=== PATIENT | male | born 1975 | race Caucasian/White ===

== ENCOUNTER 2019-05-29 13:31 | Inpatient (IN) | payer OTHER ==
[~2019-05-29] VITALS: Ht 175.2 cm; Wt 135.0 kg
[2019-05-29] VITALS (12 sets, daily range): BP systolic 83–195; BP diastolic 42–117
--- NOTE | 2019-05-29 13:30 | NUR ---
A 43, admitted to , under the services of LINDA Black DO with a diagnosis of COVID 19. Chief complaint is SHORTNESS OF BREATH, COUGH AND CHEST TIGHTNESS. Patient arrived via stretcher from ER. Monitor applied. Initial assessment completed. Vital signs taken and recorded. LINDA BLACK DO notified of admission to the unit. Orders received. See assessment for past medical history, medications and allergies. Patient and/or family oriented to unit. [facility] policy reviewed. Clothing/patient valuable form completed. CARLIE GARCIA
--- NOTE | 2019-05-29 13:44 | NUR ---
RAPID COVID PERFORMED BY AT BEDSIDE WITH POSITIVE RESULT.
--- NOTE | 2019-05-29 13:45 | NUR ---
PATIENT INTUBATED #8ETT 23LIP. SEDATED WITH ETOMIDATE, SUCCS AND ROCC. AC 20 TV 500 PEEP 18 100% FIO2.
--- NOTE | 2019-05-29 14:00 | NUR ---
#16 SAINI INSERTED WITH 50CC CLEAR STRAW URINE OBTAINED. # 16 OGT INSERTED.
--- NOTE | 2019-05-29 14:30 | NUR ---
[employer] TEAM DIRECTOR MEDICATED PATIENT WITH 200 FENTANYL AND 50 ZEMURON TO SEDATE PATIENT.
[2019-05-29 14:54] LABS: ARTERIAL BLOOD GAS PH 7.23 (7.35-7.45)
[2019-05-29 14:55] LABS: ABG BASE EXCESS -6.3 mmol/L (-2.0-2.0)
[2019-05-29 15:24] LABS: HEMATOCRIT 51.3 % (42.0-52.0); MEAN CORPUSCULAR HGB 29.1 pg (27.0-31.0); MEAN PLATELET VOLUME 12.4 fl (9.6-12.3); PLATELET COUNT AUTOMATED 182 10*3/uL (130-400); RED BLOOD COUNT 5.64 10*6/uL (4.50-5.90); RED CELL DISTRI WIDTH 14.3 % (0-14.5); WHITE BLOOD COUNT 9.8 10*3/uL (4.8-10.8)
[2019-05-29 15:32] LABS: ALBUMIN 2.6 gm/dl (3.1-4.5); ALKALINE PHOSPHATASE 64 U/L (45-117); BUN 26 mg/dl (7-24); CHLORIDE 101 mmol/L (98-107); CREATININE 1.53 mg/dL (0.70-1.30); POTASSIUM 4.9 mmol/L (3.5-5.1); SGOT/AST 128 IU/L (3-35); SGPT/ALT 61 U/L (12-78); SODIUM 134 mmol/L (136-145); TOTAL PROTEIN 7.5 gm/dL (6.4-8.2)
[2019-05-29 16:01] LABS: TOTAL CELLS COUNTED 100 #CELLS
[2019-05-29 16:02] LABS: PLATELET SUFFICIENCY NORMAL (NORMAL); POLYCHROMASIA SLIGHT; ROULEAUX SLIGHT
--- NOTE | 2019-05-29 16:35 | NUR ---
PER DR SIMEON VT CHANGED TO 400, HR 108, SPO2 95%, VT 433, PIP 36, PLAT 40, I/E 1/2.5, VE 16.3,
--- NOTE | 2019-05-29 16:36 | NUR ---
PATIENT MEDICATED WITH VERSED PER PRN ORDER FOR AGITATION.
[2019-05-29 17:21] LABS: BILIRUBIN NEGATIVE (NEGATIVE); BLOOD 3+ (NEGATIVE); CLARITY SL CLOUDY (CLEAR); COLOR YELLOW (YELLOW); GLUCOSE NEGATIVE (NEGATIVE); KETONE 1+ (NEGATIVE); LEUKO ESTERASE NEGATIVE (NEGATIVE); NITRITE NEGATIVE (NEGATIVE); UROBILINOGEN 0.2 E.U./dl (0.2-1.0)
[2019-05-29 17:27] LABS: BACTERIA 2+; EPITHELIAL CELLS 0-2; FINE GRANULAR CAST 0-2; MUCOUS TRACE; WBC 0-2 wbc/hpf (0-5)
[2019-05-29 17:38] LABS: ARTERIAL BLOOD GAS PH 7.259 (7.35-7.45)
[2019-05-29 17:39] LABS: ABG BASE EXCESS -5.8 mmol/L (-2.0-2.0)
--- NOTE | 2019-05-29 17:48 | NUR ---
PATIENT AWAKE AND ANXIOUS. MEDICATED WITH VERSED PER PRN ORDER.
--- NOTE | 2019-05-29 18:30 | NUR ---
MEDICATED WITH ROCC PER ONE TIME ORDER FROM .
[2019-05-29] MEDS ORDERED: ASPIRIN81 M1 PO (19:36)
[2019-05-29] MEDS ORDERED: TYLENOL325 M1 PO (19:36)
[2019-05-29] MEDS ORDERED: TENORMIN50 MG PO (19:36)
[2019-05-29] MEDS ORDERED: LIPITOR10 MG PO (19:37)
[2019-05-29] MEDS ORDERED: LEVOFLOXACIN750 M2 PO (19:38)
[2019-05-29] MEDS ORDERED: OMEPRAZOLE20 M2 PO (19:39)
[2019-05-29] MEDS ORDERED: GLUCOPHAGE500 M1 PO (19:39)
[2019-05-29] MEDS ORDERED: ZESTRIL10 MG PO (19:41)
[2019-05-29 21:14] LABS: ABG BASE EXCESS -6.1 mmol/L (-2.0-2.0); ARTERIAL BLOOD GAS PH 7.254 (7.35-7.45)
--- NOTE | 2019-05-29 21:30 | NUR ---
Patient becomes somewhat agitated, pulling at restraints, resp up to 40. I enter room and told the patient to try to relax he was very sick, and he nodded his head. Candido and versed given. Effective almost immediately. Will monitor.
--- NOTE | 2019-05-29 22:15 | NUR ---
TYLENOL GIVEN FOR A TEMP OF 103.3
[2019-05-30] VITALS (96 sets, daily range): BP systolic 90–146; BP diastolic 50–80
[2019-05-30 06:48] LABS: ALBUMIN 2.2 gm/dl (3.1-4.5); CREATININE 1.77 mg/dL (0.70-1.30); PHOSPHOROUS 3.5 mg/dL (2.5-4.9); POTASSIUM 4.8 mmol/L (3.5-5.1)
[2019-05-30 06:52] LABS: BASO % 0.2 % (0.0-1.0); EOS % 0.2 % (1.0-4.0); HEMATOCRIT 46.7 % (42.0-52.0); LYMPH # 1.3 10*3/uL (1.3-4.4); LYMPH % 15.9 % (27.0-41.0); MEAN CORPUSCULAR HGB 29.7 pg (27.0-31.0); MEAN CORPUSCULAR HGB CONC 31.9 g/dl (33.0-37.0); MEAN PLATELET VOLUME 12.3 fl (9.6-12.3); MONO # 0.4 10*3/uL (0.1-1.0); MONO % 4.8 % (3.0-9.0); NEUT # 6.3 10*3/uL (2.3-7.9); NEUT % 77.7 % (47.0-73.0); PLATELET COUNT AUTOMATED 170 10*3/uL (130-400); RED BLOOD COUNT 5.02 10*6/uL (4.50-5.90); RED CELL DISTRI WIDTH 14.6 % (0-14.5); WHITE BLOOD COUNT 8.1 10*3/uL (4.8-10.8)
[2019-05-30 06:59] LABS: THYROID STIM HORMONE (HS) 0.217 uIU/ml (0.358-4.75); TOTAL PROTEIN 6.5 gm/dL (6.4-8.2)
--- NOTE | 2019-05-30 09:20 | NUR ---
PATIENT RR 38. MEDICATED WITH ROCURONIUM PER PRN ORDER TO PARALYZE AND IMMEDIATELY EFFECTIVE.
[2019-05-30 10:26] LABS: ARTERIAL BLOOD GAS PH 7.196 (7.35-7.45)
--- NOTE | 2019-05-30 10:30 | NUR ---
AT BEDSIDE. RR 38. MEDICATED WITH ROCURONIUM PER PRN ORDER.
--- NOTE | 2019-05-30 12:00 | NUR ---
TEMPERATURE 102 RECTALLY. MEDICATED WITH TYLENOL RECTAL SUPP PER PRN ORDER. WILL CONTINUE TO MONITOR.
[2019-05-30 12:14] LABS: ABG BASE EXCESS -5.3 mmol/L (-2.0-2.0); ARTERIAL BLOOD GAS PH 7.162 (7.35-7.45)
--- NOTE | 2019-05-30 13:00 | NUR ---
RR 40. MEDICATED WITH ROCURONIUM PER PRN ORDER. WILL CONTINUE TO MONITOR.
[2019-05-30 15:23] LABS: ABG BASE EXCESS -4.5 mmol/L (-2.0-2.0)
[2019-05-30 15:26] LABS: ARTERIAL BLOOD GAS PH 7.163 (7.35-7.45)
--- NOTE | 2019-05-30 16:35 | NUR ---
16:00 PT PLACED IN PROVNE POSITION WITH ASSISTANCE OF ANESTHESIA AND NURSING STAFF. PT MEDICATED. TOLERATING WELL. ETT SECURE WITH TAPE. BBSs EQUAL AND DIMINISHED.
--- NOTE | 2019-05-30 17:17 | NUR ---
MEDICATED WITH TYLENOL SUPP PER PRN ORDER FOR TEMPERATUR 103.6.
--- NOTE | 2019-05-30 18:30 | NUR ---
PATIENT RETURNED TO SUPINE POSITION.
--- NOTE | 2019-05-30 21:20 | NUR ---
RESP 44, TV UP TO 680. KARTHIKEYAN GIVEN. WILL MONITOR.
[2019-05-31] VITALS (93 sets, daily range): BP systolic 96–155; BP diastolic 53–85
--- NOTE | 2019-05-31 05:20 | NUR ---
RESP 44, TV 300-600, KARTHIKEYAN GIVE. EFFECTIVE IMMEDIATELY. MONITORING.
[2019-05-31 05:44] LABS: ALKALINE PHOSPHATASE 64 U/L (45-117); BUN 33 mg/dl (7-24); CHLORIDE 101 mmol/L (98-107); CREATININE 1.51 mg/dL (0.70-1.30); PHOSPHOROUS 2.8 mg/dL (2.5-4.9); SGOT/AST 67 IU/L (3-35); SGPT/ALT 42 U/L (12-78); SODIUM 134 mmol/L (136-145); TOTAL PROTEIN 6.6 gm/dL (6.4-8.2)
[2019-05-31 05:49] LABS: POTASSIUM 5.3 mmol/L (3.5-5.1)
[2019-05-31 06:09] LABS: HEMATOCRIT 47.3 % (42.0-52.0); MEAN CELL VOLUME 92.2 fl (80.0-94.0); MEAN CORPUSCULAR HGB 29.4 pg (27.0-31.0); MEAN CORPUSCULAR HGB CONC 31.9 g/dl (33.0-37.0); MEAN PLATELET VOLUME 11.9 fl (9.6-12.3); PLATELET COUNT AUTOMATED 183 10*3/uL (130-400); RED BLOOD COUNT 5.13 10*6/uL (4.50-5.90); RED CELL DISTRI WIDTH 14.1 % (0-14.5); WHITE BLOOD COUNT 6.9 10*3/uL (4.8-10.8)
[2019-05-31 07:20] LABS: ABG BASE EXCESS -3.4 mmol/L (-2.0-2.0); ARTERIAL BLOOD GAS PH 7.22 (7.35-7.45)
--- NOTE | 2019-05-31 08:00 | NUR ---
LYING QUIETLY, INTUBATED, SEDATED WITH DIPROVAN, FENTANYL DRIP FOR PAIN MANANGEMENT, PRN KARTHIKEYAN FOR ELEVATED RESP RATE, LIJ MLC SECURE, L ART ZERO CALIBRATED WITH GOOD DYNAMIC RESPONSE, OGT WITH TUBE FEEDINGS AT 20, SAINI FOR VASILE URINE, BILATER SOFT WRIST RESTRAINTS, HEELS OFF BED, HOB ELEVATED PO MEDS GIVEN THRU OGT
[2019-05-31 08:11] LABS: PLATELET SUFFICIENCY NORMAL (NORMAL); TOTAL CELLS COUNTED 100 #CELLS
--- NOTE | 2019-05-31 12:30 | NUR ---
DR SIMEON HERE, PTS TREATMENT PLAN REVIEWED
--- NOTE | 2019-05-31 13:15 | NUR ---
VERSED EFFECTIVE FOR CALMNESS
--- NOTE | 2019-05-31 13:26 | NUR ---
KARTHIKEYAN NEEDED PT IS BREATHINGOVER THE VENT SETTINGS AND HAS BEEN EFFECTIVE
[2019-05-31 15:46] LABS: ABG BASE EXCESS -5.1 mmol/L (-2.0-2.0)
[2019-05-31 15:47] LABS: ARTERIAL BLOOD GAS PH 7.097 (7.35-7.45)
--- NOTE | 2019-05-31 16:00 | NUR ---
ADDITIONAL KARTHIKEYAN GIVEN BEFORE PERSONAL CARE
[2019-05-31 16:08] LABS: ABG BASE EXCESS -4.6 mmol/L (-2.0-2.0)
[2019-05-31 16:11] LABS: ARTERIAL BLOOD GAS PH 7.102 (7.35-7.45)
--- NOTE | 2019-05-31 16:12 | NUR ---
ENDOTRACHEAL TUBE ASVANCED 2 CENTIMETERS FROM 22CM TO 24CM.
[2019-05-31 17:42] LABS: ABG BASE EXCESS -2.2 mmol/L (-2.0-2.0); ARTERIAL BLOOD GAS PH 7.208 (7.35-7.45)
--- NOTE | 2019-05-31 20:10 | NUR ---
ZEMURON GIVEN FOR RESPIRATORY RATE ABOVE 32. MEDICATION IMMEDIATELY EFFECTIVE. WAVEFORMS ON VENTILATOR HAVE BECOME MORE UNIFORM AND EVENLY SPACED.
[2019-05-31 20:15] LABS: ABG BASE EXCESS -0.5 mmol/L (-2.0-2.0); ARTERIAL BLOOD GAS PH 7.318 (7.35-7.45)
[2019-06-01] VITALS (94 sets, daily range): BP systolic 106–172; BP diastolic 58–96
--- NOTE | 2019-06-01 04:00 | NUR ---
DIPROVAN TUBING CHANGED AT THIS TIME.
--- NOTE | 2019-06-01 05:05 | NUR ---
LABS AND ABGS WERE OBATINED AT THIS TIME. ZEMURON WAS ALSO GIVEN AT THIS TIME FOR RR 35.
[2019-06-01 05:42] LABS: ABG BASE EXCESS 1.2 mmol/L (-2.0-2.0); ARTERIAL BLOOD GAS PH 7.33 (7.35-7.45)
[2019-06-01 06:06] LABS: ALBUMIN 1.9 gm/dl (3.1-4.5); ALKALINE PHOSPHATASE 79 U/L (45-117); BUN 35 mg/dl (7-24); CHLORIDE 101 mmol/L (98-107); CREATININE 1.39 mg/dL (0.70-1.30); SGOT/AST 44 IU/L (3-35); SGPT/ALT 38 U/L (12-78); SODIUM 135 mmol/L (136-145); TOTAL PROTEIN 6.2 gm/dL (6.4-8.2); TRIGLYCERIDES 507 mg/dl (<150)
[2019-06-01 06:09] LABS: POTASSIUM 6.6 mmol/L (3.5-5.1)
[2019-06-01 06:23] LABS: HEMATOCRIT 45.8 % (42.0-52.0); MEAN CELL VOLUME 93.7 fl (80.0-94.0); MEAN CORPUSCULAR HGB 30.1 pg (27.0-31.0); MEAN CORPUSCULAR HGB CONC 32.1 g/dl (33.0-37.0); MEAN PLATELET VOLUME 12.1 fl (9.6-12.3); NUCLEATED RED BLOOD CELL 0.1 10*3/uL (0.0-0.0); NUCLEATED RED BLOOD CELL 0.4 % (0.0-0.0); RED BLOOD COUNT 4.89 10*6/uL (4.50-5.90); RED CELL DISTRI WIDTH 14.1 % (0-14.5); WHITE BLOOD COUNT 13.9 10*3/uL (4.8-10.8)
[2019-06-01 06:26] LABS: PLATELET COUNT AUTOMATED 319 10*3/uL (130-400)
[2019-06-01 07:01] LABS: BUN 38 mg/dl (7-24); CHLORIDE 101 mmol/L (98-107); CREATININE 1.35 mg/dL (0.70-1.30); SODIUM 135 mmol/L (136-145)
[2019-06-01 07:09] LABS: ATYPICAL LYMPHS 3 % (0-0); PLASMA CELL 1 % (0-0); TOTAL CELLS COUNTED 100 #CELLS
[2019-06-01 07:10] LABS: BURR CELLS FEW; PLATELET SUFFICIENCY NORMAL (NORMAL); POLYCHROMASIA SLIGHT; ROULEAUX SLIGHT
[2019-06-01 07:14] LABS: POTASSIUM 6.4 mmol/L (3.5-5.1)
--- NOTE | 2019-06-01 08:00 | NUR ---
REMAINS ON VENT, DIPROVAN AT 50 MCG, LEVAPHED AT 4, FENTANYL AT 40MCG PT MOVING HEAD AND STACKING BREATHS, KARTHIKEYAN GIVEN AND HAS BEEN EFFECTIVE, LIJ AND L ART ARE SECURE AND PATENT, SAINI FOR VASILE URINE, BILATERAL WRIST RESTRAINTS REPOSITIONED
--- NOTE | 2019-06-01 09:05 | NUR ---
LABS HAVE BEEN REPEATED PER DR LEW
[2019-06-01 09:10] LABS: BUN 38 mg/dl (7-24); CHLORIDE 100 mmol/L (98-107); CREATININE 1.35 mg/dL (0.70-1.30); SODIUM 133 mmol/L (136-145)
[2019-06-01 09:16] LABS: POTASSIUM 6.4 mmol/L (3.5-5.1)
--- NOTE | 2019-06-01 09:48 | NUR ---
CALCIUM GLUCANATE/INSULIN FOR K 6.4
--- NOTE | 2019-06-01 10:08 | NUR ---
DR BAKER NOTIFIED OF CONSULT ORDERS RECIEVED
[2019-06-01 11:26] LABS: ACT PARTIAL THROMBO TIME 31.6 SECONDS (20.0-32.1)
--- NOTE | 2019-06-01 11:30 | NUR ---
KARTHIKEYAN GIVEN AND IS EFFECTIVE
[2019-06-01 12:23] LABS: ABG BASE EXCESS -0.4 mmol/L (-2.0-2.0); ARTERIAL BLOOD GAS PH 7.266 (7.35-7.45)
[2019-06-01 15:10] LABS: BUN 45 mg/dl (7-24); CHLORIDE 102 mmol/L (98-107); CREATININE 1.48 mg/dL (0.70-1.30); SODIUM 134 mmol/L (136-145)
[2019-06-01 15:15] LABS: BUN 44 mg/dl (7-24); CHLORIDE 102 mmol/L (98-107); CREATININE 1.45 mg/dL (0.70-1.30); SODIUM 136 mmol/L (136-145)
[2019-06-01 15:16] LABS: PHOSPHOROUS 3.1 mg/dL (2.5-4.9)
[2019-06-01 15:23] LABS: POTASSIUM 6.1 mmol/L (3.5-5.1)
[2019-06-01 15:26] LABS: POTASSIUM 6.1 mmol/L (3.5-5.1)
--- NOTE | 2019-06-01 16:51 | NUR ---
KARTHIKEYAN GIVEN PRIOR TO PRONING
--- NOTE | 2019-06-01 17:59 | NUR ---
PT PRONED WITH ASSIST X 8, TOLERATED WELL
--- NOTE | 2019-06-01 18:08 | NUR ---
PT PRONE, ART LINE RELEVELED AND ZERO CALIBRATED WITH GOOD DYNAMIC RESPONSE, ALL LINES ARE SECURE AND DRIPS HAVE BEEN RESUMED, SAINI SECURE, PT POSITIONED WITH ASSISTANCE OF ANES DEPT
--- NOTE | 2019-06-01 19:49 | NUR ---
SEDATED ON VENT IN PRONE POSITION. BLOOD PRESSURE, OXYGEN SATS HEART RATE WITHIN ORDERED GUIDELINES. NEPRO HUNG PER ORDERS AT 20ML/HR. RESP THERAPY IN ROOM. NO ABNORMALITY NOTED IN LEFT SCLERA. ALL PRESSERS AND SEDATION RUNNING PER ORDERS. RESTRAINED PER ORDERS. CIRCULATION INTACT. WILL MONITOR FOR CHANGES DUE TO PRONE POSITION.
--- NOTE | 2019-06-01 22:03 | NUR ---
2200PM ASSESSMENT DONE. ORAL CARE COMPLETED. DIPROVAN GTT AND TUBING CHANGED. ABX INFUSED. URINE VASILE IN COLOR. INCONTINENT OF LIQUID BROWN STOOL. CLIENT WASHED UP AND PROTECTANT PAD BETWEEN SKIN AND SHEETS. RECTAL TUBE INSERTED VIA ORDERS AND PRIME POLICY. IMMEDIATE RETURN OF LIQUID BROWN STOOL NOTED. POSITIONED TO NOT TOUCH SKIN. I&O'S COMPLETED. LANTUS INSULIN GIVEN COVERAGE OF 20 UNITS SC FOR ELEVATED SUGAR OF 368 PER SCALE. KARTHIKEYAN GIVEN AT 2150PM FOR COUGH. EFFECTIVE.
[2019-06-02] VITALS (95 sets, daily range): BP systolic 94–195; BP diastolic 52–90
--- NOTE | 2019-06-02 00:33 | NUR ---
WITH ASSISTE OF 2 RESP THERAPIST REPOSITIONED HEAD AND BILAT ARMS. ALL LINES STABLE. ETT SECURE.
--- NOTE | 2019-06-02 05:10 | NUR ---
UNABLE TO WEIGHT PT TILL TURNED. TOO MANY ADDED PILLOWS FOR COMFORT
[2019-06-02 05:43] LABS: ALBUMIN 2.2 gm/dl (3.1-4.5); ALKALINE PHOSPHATASE 87 U/L (45-117); CHLORIDE 103 mmol/L (98-107); CREATININE 1.41 mg/dL (0.70-1.30); PHOSPHOROUS 4.4 mg/dL (2.5-4.9); SGOT/AST 57 IU/L (3-35); SGPT/ALT 45 U/L (12-78); SODIUM 139 mmol/L (136-145); TOTAL PROTEIN 6.5 gm/dL (6.4-8.2); TRIGLYCERIDES 663 mg/dl (<150)
[2019-06-02 05:44] LABS: BUN 55 mg/dl (7-24); POTASSIUM 5.4 mmol/L (3.5-5.1)
--- NOTE | 2019-06-02 06:10 | NUR ---
ROCURONIUM GIVEN FOR INCREASED RESP OVER VENT. DIAZ CARE DONE. I&O COMPLETED. ABG SENT PER ORDERS.
[2019-06-02 06:17] LABS: ACT PARTIAL THROMBO TIME 28.7 SECONDS (20.0-32.1)
[2019-06-02 06:26] LABS: ABG BASE EXCESS 2.4 mmol/L (-2.0-2.0); ARTERIAL BLOOD GAS PH 7.37 (7.35-7.45)
[2019-06-02 06:34] LABS: HEMATOCRIT 47.6 % (42.0-52.0); MEAN CORPUSCULAR HGB 29.7 pg (27.0-31.0); MEAN CORPUSCULAR HGB CONC 31.9 g/dl (33.0-37.0); MEAN PLATELET VOLUME 11.3 fl (9.6-12.3); NUCLEATED RED BLOOD CELL 0.1 10*3/uL (0.0-0.0); NUCLEATED RED BLOOD CELL 0.6 % (0.0-0.0); RED BLOOD COUNT 5.12 10*6/uL (4.50-5.90); RED CELL DISTRI WIDTH 14.2 % (0-14.5); WHITE BLOOD COUNT 13.7 10*3/uL (4.8-10.8)
[2019-06-02 06:43] LABS: PLATELET COUNT AUTOMATED 462 10*3/uL (130-400)
[2019-06-02 07:56] LABS: PLATELET SUFFICIENCY HIGH (NORMAL); TOTAL CELLS COUNTED 100 #CELLS
[2019-06-02 09:46] LABS: ARTERIAL BLOOD GAS PH 7.314 (7.35-7.45)
--- NOTE | 2019-06-02 10:00 | NUR ---
PT GIVEN POC, THEN WAS PLACED BACK SUPINE WITH ASSIST OF 8, TOLERATED WELL DR SIMEON IN TO EXAM PT PT REMAINS ON FENTANYL/DIPROVAN/LEVAPHED DRIP WITH STABLE VS ARE STABLE, VENT PT CARE DONE, REPOSITIONED COMFORTABLY ON BACK
--- NOTE | 2019-06-02 12:19 | NUR ---
ADDITIONAL 10 UNITS OF LANTUS TO MAKE THE NEW DOSE OF 30
--- NOTE | 2019-06-02 12:56 | NUR ---
ART AND MLC DRESING CHANGED PER POLICYM ART LINE TUBING AND HEPARIN BAG CHANGED
--- NOTE | 2019-06-02 15:49 | NUR ---
ABG SENT, PT HAD SUDDEN DESAT INTO THE MID 70'S AND DROP IN BP TO A MEAN OF 64 LEVAPHED TITRATED TO 4 MCG OR 15CC
[2019-06-02 15:51] LABS: ABG BASE EXCESS 3.3 mmol/L (-2.0-2.0); ARTERIAL BLOOD GAS PH 7.356 (7.35-7.45)
--- NOTE | 2019-06-02 16:10 | NUR ---
PT PRONED WITH ASSIST X 7 FACE POSITIONED WELL WITH PRONE PILLOW, EYELIDS TAPED ARMS REPOSITIONED INTO THE "SWIMMING" POSITION LEGS EXERCISED, ALL LINES ARE SECURE
--- NOTE | 2019-06-02 18:29 | NUR ---
KARTHIKEYAN GIVEN TO MAINTAIN PARALYZED STATE DIPROVAN TITRATED TO 40 MCG
--- NOTE | 2019-06-02 18:44 | NUR ---
LEVAPHED TITRATED TO 5MCG/18.8CC TO MAINTAIN MAP>80 WHILE PT IS PRONE
--- NOTE | 2019-06-02 20:15 | NUR ---
PT. REMAINS IN PRONE POSITION. ART IN LEFT RADIAL INTACT. SAINI DRAINING A CLEAR YELLOW URINE, QUANTITY SUFFICIENT. DIPROVAN, FENTANYL AND LEVOPHED CONTINUE ORDERED. LEVOPHED TITRATED DOWN DUE TO HYPERTENSION, CURRENTLY AT 3MICS. TUBE FEEDING CONTINUES ORDERED VIA OGT, NO RESIDUAL NOTED. PLACEMENT CONFIRMED WITH AIR BOLUS. LUNGS HAVE I&E WHEEZES AND RHONCHI BILAT, PULLS EOX 92%. ABDOMEN NORMO. EDEMA VS OBESITY. LAURYN RUVALCABA RN
--- NOTE | 2019-06-02 22:31 | NUR ---
PT. GIVEN ZEMURON ORDERED FOR RAPID RESP AND B/P, IMMEDIATELY EFFECTIVE. LAURYN RUVALCABA RN
--- NOTE | 2019-06-02 23:10 | NUR ---
Patient repositioned at this time with the help of two others. (swam the arms and change head positioning) Patient tolerated well.
[2019-06-03] VITALS (95 sets, daily range): BP systolic 71–199; BP diastolic 44–95
--- NOTE | 2019-06-03 02:53 | NUR ---
PT.L GIVEN ZEMURON ORDERED FOR ELEV HR AND RESP. IMMEDIATELY EFFECTIVE. LAURYN RUVALCABA RN
--- NOTE | 2019-06-03 04:17 | NUR ---
PT DESATING, RESP REQUESTING ANESTHESIA DUE TO BLOWN CUFF ON ENDOTUBE. PATIENT PLACED ON BACK FROM PRONE POSITION. RAQUEL SIMMS REINTUBATED PATIENT. DR. TANNER AT BEDSIDE. OG REINSERTED. AWAITING CHEST XRAY TO CONFIRM PLACMEMENT OF ENDO AND OGT. LAURYN RUVALCABA RN
--- NOTE | 2019-06-03 05:30 | NUR ---
PT. GIVEN ZEMURON AT 0423 ORDERED FOR ELEV HR AND B/P AND RESP. IMMEDIATELY EFFECTIVE.
[2019-06-03 05:50] LABS: ALBUMIN 2.2 gm/dl (3.1-4.5); ALKALINE PHOSPHATASE 83 U/L (45-117); BUN 48 mg/dl (7-24); CHLORIDE 102 mmol/L (98-107); CREATININE 1.18 mg/dL (0.70-1.30); PHOSPHOROUS 5.6 mg/dL (2.5-4.9); POTASSIUM 5.5 mmol/L (3.5-5.1); SGOT/AST 98 IU/L (3-35); SGPT/ALT 69 U/L (12-78); SODIUM 142 mmol/L (136-145); TOTAL PROTEIN 6.1 gm/dL (6.4-8.2)
[2019-06-03 06:37] LABS: HEMATOCRIT 48.2 % (42.0-52.0); MEAN CORPUSCULAR HGB 30.3 pg (27.0-31.0); MEAN CORPUSCULAR HGB CONC 30.9 g/dl (33.0-37.0); MEAN PLATELET VOLUME 11.1 fl (9.6-12.3); NUCLEATED RED BLOOD CELL 0.2 10*3/uL (0.0-0.0); PLATELET COUNT AUTOMATED 471 10*3/uL (130-400); RED BLOOD COUNT 4.92 10*6/uL (4.50-5.90); RED CELL DISTRI WIDTH 14.6 % (0-14.5); WHITE BLOOD COUNT 15.1 10*3/uL (4.8-10.8)
[2019-06-03 07:18] LABS: PLATELET SUFFICIENCY HIGH (NORMAL); POLYCHROMASIA SLIGHT; TOTAL CELLS COUNTED 100 #CELLS
[2019-06-03 07:58] LABS: ABG BASE EXCESS 4.4 mmol/L (-2.0-2.0); ARTERIAL BLOOD GAS PH 7.292 (7.35-7.45)
--- NOTE | 2019-06-03 09:00 | NUR ---
FIO2 DECREASED TO 80%, TIDAL VOLUME INCREASED TO 430 FOR pH 7.292 AND CO2 OF 71. CHANGES DISCUSSED WITH KANDY NELSON,
[2019-06-03 12:27] LABS: ABG BASE EXCESS 5.6 mmol/L (-2.0-2.0); ARTERIAL BLOOD GAS PH 7.377 (7.35-7.45)
--- NOTE | 2019-06-03 12:55 | NUR ---
ABG RESULTS CALLED TO DR SIMEON. VT DECREASED TO 360, FIO2 DECREASED TO 75%. PLAT PRESSURE 29, DRIVING PRESSURE 11, PEAK PRESSURE 40, HR 94 SPO2 97%. WILL OBTAIN ABGS IN 2 HOURS.
--- NOTE | 2019-06-03 13:23 | NUR ---
TEMPERATURE 101.5 CP. MEDICATED WITH TYLENOL PER PRN ORDER.
--- NOTE | 2019-06-03 13:32 | NUR ---
RR 36. MEDICATED WITH ROCURONIUM PER PRN ORDER.
[2019-06-03 16:05] LABS: ARTERIAL BLOOD GAS PH 7.275 (7.35-7.45)
[2019-06-03 16:10] LABS: ABG BASE EXCESS 5.9 mmol/L (-2.0-2.0)
--- NOTE | 2019-06-03 16:20 | NUR ---
TEMPERATURE 101.3 PER CP. MEDICATED WITH TYLENOL PER PRN ORDER.
--- NOTE | 2019-06-03 16:36 | NUR ---
RR 38. MEDICATED WITH ROCURONIUM PER PRN ORDER.
--- NOTE | 2019-06-03 17:15 | NUR ---
PATIENT INCREASED TO 80% FOR A SPO2 OF 88%, PLAT PRESSURE 30.
--- NOTE | 2019-06-03 20:45 | NUR ---
PATIENT PLACED IN PRONE POSITION. VENT SETTING REMAIN UNCHANGED. HR 125 SPO2 95%, PEAK PRESSURE 39, PLAT PRESSURE 28.
--- NOTE | 2019-06-03 21:00 | NUR ---
PATIENT PLACED INTO THE PRNOE POSTITION AT THIS TIME, 3 RESPIRATORY TECHS PRESENT ALONG WITH MACHINIST LINOTYPE AND 3 RN'S. PATIENT TOLERATED WELL AND ALL VITALS REMAINED STABLE. RN WILL CONTINUE TO MONITOR
[2019-06-04] VITALS (95 sets, daily range): BP systolic 92–1160; BP diastolic 50–94
--- NOTE | 2019-06-04 03:00 | NUR ---
Pt switched in his modified swimming position proned. Head to the left and right arm up, left arm down. No comps.
--- NOTE | 2019-06-04 04:59 | NUR ---
Pt was proned at 2100 on 06/03/19. Pt was alternated modified swimming every 2-3 hours as time allowed. Tube size is an 8 - 24lip. ARDS protocol and PEEP table were followed throughout the night. Final settings are [id number]
[2019-06-04 05:04] LABS: HEP B CORE AB, IGM Negative (Negative); HEPATITIS B SURFACE AG Negative (Negative); HEPATITIS C VIRUS ANTIBODY <0.1 s/co (0.0-0.9)
--- NOTE | 2019-06-04 05:05 | NUR ---
LABS AND BLOOD CULTURES OBTAINED AT THIS TIME, PATIENT CONTINUED TO BE IN THE PRONE POSITION. TOLERATING WELL.
--- NOTE | 2019-06-04 05:07 | NUR ---
Pt suctioned for moderate amount of creamy, super thick secretions.
[2019-06-04 05:27] LABS: ALBUMIN 2.3 gm/dl (3.1-4.5); ALKALINE PHOSPHATASE 81 U/L (45-117); BUN 50 mg/dl (7-24); CHLORIDE 104 mmol/L (98-107); CREATININE 1.25 mg/dL (0.70-1.30); PHOSPHOROUS 2.7 mg/dL (2.5-4.9); POTASSIUM 5.6 mmol/L (3.5-5.1); SGOT/AST 83 IU/L (3-35); SGPT/ALT 77 U/L (12-78); SODIUM 142 mmol/L (136-145); TRIGLYCERIDES 593 mg/dl (<150)
[2019-06-04 05:58] LABS: ARTERIAL BLOOD GAS PH 7.313 (7.35-7.45)
[2019-06-04 06:02] LABS: HEMATOCRIT 45.9 % (42.0-52.0); MEAN CELL VOLUME 98.5 fl (80.0-94.0); MEAN CORPUSCULAR HGB CONC 30.5 g/dl (33.0-37.0); MEAN PLATELET VOLUME 10.9 fl (9.6-12.3); NUCLEATED RED BLOOD CELL 0.5 10*3/uL (0.0-0.0); NUCLEATED RED BLOOD CELL 2.1 % (0.0-0.0); PLATELET COUNT AUTOMATED 525 10*3/uL (130-400); RED BLOOD COUNT 4.66 10*6/uL (4.50-5.90); RED CELL DISTRI WIDTH 14.8 % (0-14.5); WHITE BLOOD COUNT 21.2 10*3/uL (4.8-10.8)
[2019-06-04 08:04] LABS: ATYPICAL LYMPHS 1 % (0-0); PLATELET SUFFICIENCY HIGH (NORMAL); POLYCHROMASIA SLIGHT; STOMATOCYTE FEW; TOTAL CELLS COUNTED 100 #CELLS
[2019-06-04 08:05] LABS: ROULEAUX SLIGHT; TARGET CELLS FEW
--- NOTE | 2019-06-04 08:25 | NUR ---
PATIENT IN PRONE POSITION. HEAD REPOSITIONED WITH RESPIRATORY. RR 38. PLATEAU PRESSURE 35. MEDICATED WITH ROCURONIUM PER PRN ORDER.
--- NOTE | 2019-06-04 09:00 | NUR ---
CALLED TO PT.S ROOM BY RN. PT.S PLAT. PRESSURE AT 35. TIDAL VOLUME DECREASED TO 340 AND PEEP DECREASED TO 20. PLAT. PRESSURE NOW AT 29. SPO2 AT 96%. FIO2 TO 80%.
--- NOTE | 2019-06-04 09:10 | NUR ---
TEMPERATURE 101.1 PER CP. MEDICATED WITH TYLENOL PER PRN ORDER.
[2019-06-04 11:41] LABS: ABG BASE EXCESS 5.7 mmol/L (-2.0-2.0)
[2019-06-04 11:45] LABS: ARTERIAL BLOOD GAS PH 7.191 (7.35-7.45)
--- NOTE | 2019-06-04 11:45 | NUR ---
CRITICAL VALUES ON ABG CALLED TO DR. SIMEON. NEW ORDERS GIVEN TO INCREASE PEAK FLOW TO 55 AND DECREASE FIO2 TO 70%. REPEAT ABG IN 2HRS.
--- NOTE | 2019-06-04 14:04 | NUR ---
PATIENT RETURNED TO SUPINE POSITION. RR 36 PATIENT MEDICATED WITH ROCURONIUM PER PRN ORDER.
[2019-06-04 14:48] LABS: ABG BASE EXCESS 7.9 mmol/L (-2.0-2.0); ARTERIAL BLOOD GAS PH 7.255 (7.35-7.45)
[2019-06-04 19:40] LABS: ABG BASE EXCESS 9.2 mmol/L (-2.0-2.0); ARTERIAL BLOOD GAS PH 7.323 (7.35-7.45)
--- NOTE | 2019-06-04 20:00 | NUR ---
PT RESTING IN BED WITH WITH EYES CLOSED. ENDOTUBE PATENT, TIES SECURE, VENT SETTINGS VERIFIED AND FUNCTIONING WITHOUT DIFFICULTY. OGT PATENT, PLACEMENT VERIFIED AND TF VIVI WELL. RIGHT IJ MLC AND RIGHT ART LINE PATENT, DRESSINGS DRY AND INTACT. IVF'S INFUSING ORDERED. DIPRIVAN AND FENTANYL EFFECTIVE. SAINI PATENT FOR CLEAR STRAW URINE. SKIN WARM AND DRY. 2+ PITTING EDEMA NOTED TO BLE AND LEFT EYE. ISOLATION PRECAUTIONS MAINTAINED.
--- NOTE | 2019-06-04 22:30 | NUR ---
MEDICATED WITH ZEMURON PER PRN ORDER FOR AGITATION.
--- NOTE | 2019-06-04 22:30 | NUR ---
MEDICATED WITH TYLENOL PER PRN ORDER FOR T 101.1(R).
[2019-06-05] VITALS (96 sets, daily range): BP systolic 104–184; BP diastolic 55–86
--- NOTE | 2019-06-05 00:20 | NUR ---
23:45 DECREASED PEEP TO +20. SpO2 96%
--- NOTE | 2019-06-05 02:00 | NUR ---
MEDICATED WITH ZEMURON PER PRN ORDER FOR AGITATION/SEDATION.
--- NOTE | 2019-06-05 03:30 | NUR ---
MEDICATED WITH TYLENOL SUPPOSITORY PER PRN ORDER FOR T 101.5(R).
[2019-06-05 05:42] LABS: ARTERIAL BLOOD GAS PH 7.355 (7.35-7.45)
[2019-06-05 06:25] LABS: ALBUMIN 2.4 gm/dl (3.1-4.5); ALKALINE PHOSPHATASE 78 U/L (45-117); BUN 46 mg/dl (7-24); CHLORIDE 105 mmol/L (98-107); CREATININE 1.12 mg/dL (0.70-1.30); PHOSPHOROUS 2.9 mg/dL (2.5-4.9); SGOT/AST 54 IU/L (3-35); SGPT/ALT 67 U/L (12-78); SODIUM 147 mmol/L (136-145); TOTAL PROTEIN 5.7 gm/dL (6.4-8.2); TRIGLYCERIDES 696 mg/dl (<150)
[2019-06-05 06:26] LABS: POTASSIUM 4.9 mmol/L (3.5-5.1)
[2019-06-05 06:38] LABS: HEMATOCRIT 42.7 % (42.0-52.0); MEAN CORPUSCULAR HGB 30.3 pg (27.0-31.0); MEAN CORPUSCULAR HGB CONC 29.5 g/dl (33.0-37.0); MEAN PLATELET VOLUME 10.6 fl (9.6-12.3); NUCLEATED RED BLOOD CELL 0.3 10*3/uL (0.0-0.0); NUCLEATED RED BLOOD CELL 1.2 % (0.0-0.0); PLATELET COUNT AUTOMATED 505 10*3/uL (130-400); RED BLOOD COUNT 4.16 10*6/uL (4.50-5.90); WHITE BLOOD COUNT 21.2 10*3/uL (4.8-10.8)
[2019-06-05 07:49] LABS: MEAN CELL VOLUME 102.6 fl (80.0-94.0)
[2019-06-05 07:53] LABS: TOTAL CELLS COUNTED 100 #CELLS
[2019-06-05 07:54] LABS: PLATELET SUFFICIENCY HIGH (NORMAL)
--- NOTE | 2019-06-05 08:51 | NUR ---
SEDATION VACATION FROM FENTANYL AND DIPRIVAN ATTEMPTED AT THIS TIME. RR UP TO 42. SEDATION RESTARTED AND ROCURONIUM GIVEN. TEMPERATURE OF 102.2 PER CP MEDICATED WITH TYLENOL.
--- NOTE | 2019-06-05 08:51 | NUR ---
PATIENT REMAINS VENTILATED. AC 30 TV 340 02 70% PEEP 20. RR 42. BLOOD PRESSURE 108/58. ST PER CM RATE LOW 100-120'S. 1+ EDEMA NOTED BILATERALLY. I&3 WHEEZING/RHONCHI THROUGHOUT. SAINI PATENT AND DRAINING VASILE CLOUDY URINE. PROPOFOL GTT INFUSING 30MIC. FENTANYL GTT INFUSING 40MIC. LEVOPHED GTT INFUSING 8 GENE. LIJ MLC INTACT. LEFT RADIAL ART LINE INTACT. OGT PATENT WITH GLUCERNA INFUSING 30CC/HR. MEDICATED WITH ROCURONIUM.
--- NOTE | 2019-06-05 12:39 | NUR ---
TEMPERATURE 102.4. RR 30. ST PER CM-RATE 110'S. POX 98% ON 70% FIO2. MEDICATED WITH TYLENOL PER PRN ORDER FOR TEMPERATURE. WEANING DIPRIVAN AT THIS TIME AND STARTED A KETAMINE GTT. RR INCREASED TO 35 WHILE IN ROOM ROCURONIUM GIVEN PER PRN ORDER.
[2019-06-05 16:21] LABS: ABG BASE EXCESS 10.3 mmol/L (-2.0-2.0); ARTERIAL BLOOD GAS PH 7.295 (7.35-7.45)
--- NOTE | 2019-06-05 17:50 | NUR ---
14:50 FIO2 DECREASED TO 60%. SPO2 97% ABG TO FOLLOW AT 16:15.
--- NOTE | 2019-06-05 17:50 | NUR ---
1300 FIO2 DECREASED TO 65% SPO2 97%
--- NOTE | 2019-06-05 17:52 | NUR ---
SHIFT SUMMARY: PF RATIO 201 BASED ON 5 AM ABG. POF RATIO 198 BASED UPON 16:00 ABG. PLATEAU PRESSURES REANGING 28-30 WITH DRIVING PRESSURES AT 8-10.
--- NOTE | 2019-06-05 19:30 | NUR ---
MEDICATED WITH TYLENOL PER PRN ORDER FOR T-102.7(R).
--- NOTE | 2019-06-05 19:50 | NUR ---
MEDICATED WITH ZEMURON PER PRN ORDER FOR S/S OF AGITATION/SEDATION.
[2019-06-05 19:59] LABS: ABG BASE EXCESS 13.7 mmol/L (-2.0-2.0); ARTERIAL BLOOD GAS PH 7.378 (7.35-7.45)
--- NOTE | 2019-06-05 20:00 | NUR ---
PT RESTING IN BED WITH EYES CLOSED, ENDOTUBE PATENT, TIES SECURE. VENT SETTINGS VERIFIED AND FUNCTIONING WITHOUT DIFFICULTY. OGT PATENT, PLACEMENT VERIFIED VIA AIR BOLUS AND FLUSHED WITH EASE. TF INFUSING AND VIVI WELL. LEFT IJ MLC PATENT AND DRESSIG DRY AND INTACT. LEFT ART LINE PATENT, DRESSING DRY AND INTACT, FLUSHED WITH EASE. SAINI PATENT FOR CLEAR VASILE URINE. IVF'S INFUSING ORDERED. NO S/S OF HYPIO/HYPERGLYCEMIA NOTED. NO ACUTE DISTRESS NOTED AT THIS TIME. ISOLATION PRECAUTIONS MAINTAINED.
--- NOTE | 2019-06-05 22:25 | NUR ---
DR SIMEON CALLED WITH ABG RESULTS. PER DR SIMEON FIO2 IS TO BE DECREASED BY 5% TIMES 2 THROUGHOUT THE NIGHT. FIO2 DECREASED TO 55% AT THIS TIME. NO ADDITIONAL VENT CHANGES ORDERED AT THIS TIME.
--- NOTE | 2019-06-05 23:00 | NUR ---
DR TANNER NOTIFIED OF T 103.1(R) AND THAT TYLENOL HAD BEEN GIVEN Q4H AND HAS BEEN INEFFECTIVE. NEW ORDER FOR COOLING BLANKET.
--- NOTE | 2019-06-05 23:30 | NUR ---
MEDICATED WITH TYLENOL SUPPOSITORY FOR TEMP AND ZEMURON PER PRN ORDER FOR R>32.
[2019-06-06] VITALS (65 sets, daily range): BP systolic 94–1663; BP diastolic 32–89
[2019-06-06 00:04] LABS: TB1 Ag VALUE 0.08 IU/mL (.)
--- NOTE | 2019-06-06 02:50 | NUR ---
MEDICATED WITH ZEMURON PER PRN ORDER FOR RR >32.
--- NOTE | 2019-06-06 03:20 | NUR ---
PATIENTS FIOS2 INCREASED TO 55% THEN 60% POST BATH DUE TO SATURATIONS IN THE MID 80s. SPO2 91% ON 60%.
[2019-06-06 05:19] LABS: ALBUMIN 2.4 gm/dl (3.1-4.5); ALKALINE PHOSPHATASE 82 U/L (45-117); BUN 38 mg/dl (7-24); CHLORIDE 106 mmol/L (98-107); CREATININE 0.92 mg/dL (0.70-1.30); PHOSPHOROUS 3.5 mg/dL (2.5-4.9); POTASSIUM 4.7 mmol/L (3.5-5.1); SGOT/AST 54 IU/L (3-35); SGPT/ALT 57 U/L (12-78); SODIUM 147 mmol/L (136-145); TOTAL PROTEIN 6.1 gm/dL (6.4-8.2)
[2019-06-06 05:48] LABS: ABG BASE EXCESS 12.5 mmol/L (-2.0-2.0); ARTERIAL BLOOD GAS PH 7.386 (7.35-7.45)
--- NOTE | 2019-06-06 06:00 | NUR ---
MEDICATED WITH ZEMURON PER PRN ORDER FOR RR >32 AND AGITATION/SEDATION.
[2019-06-06 06:12] LABS: HEMATOCRIT 42.3 % (42.0-52.0); MEAN CELL VOLUME 103.4 fl (80.0-94.0); MEAN CORPUSCULAR HGB 30.1 pg (27.0-31.0); MEAN CORPUSCULAR HGB CONC 29.1 g/dl (33.0-37.0); MEAN PLATELET VOLUME 10.6 fl (9.6-12.3); NUCLEATED RED BLOOD CELL 0.1 10*3/uL (0.0-0.0); NUCLEATED RED BLOOD CELL 0.5 % (0.0-0.0); PLATELET COUNT AUTOMATED 504 10*3/uL (130-400); RED BLOOD COUNT 4.09 10*6/uL (4.50-5.90); RED CELL DISTRI WIDTH 15.5 % (0-14.5); WHITE BLOOD COUNT 24.4 10*3/uL (4.8-10.8)
[2019-06-06 07:24] LABS: BURR CELLS FEW; PLATELET SUFFICIENCY HIGH (NORMAL); POLYCHROMASIA SLIGHT; TOTAL CELLS COUNTED 100 #CELLS
--- NOTE | 2019-06-06 07:30 | NUR ---
REMAONS INTUBATED, AND ON FENTANYL AND KETAMINE DRIPS, ALL SEDATION TURNED OFF, PT DOES NOT RESPOND TO PAINFUL STIMULIS TO NAIL BEDS, PT DOES NOT FOLLOW SIMPLE COMMANDS, RESP DID INCREASE TO 37, SEDATION RESUMED, MLC, ART, OGT AND SAINI ARE SECURE, RECTAL TEMP PROBE READING 99.5, PT REPOSITIONED WITH FEET POSITIONED AGAINST PILLOWS TO PREVENT FOOT DROP
--- NOTE | 2019-06-06 08:11 | NUR ---
CHEVY GUZMÁN [id number] Please refer to the physician's history and physical for past medical history, comorbid conditions, and allergies. Diagnosis: SUSPECTIVE COVID-2019 INFECTION RESPIRATORY Judson Score: 12,HIGH RISK WOUND DESCRIPTIONS: Wound Number: 1 Location of the wound: Left eyebrown Type of wound: medical receptionist assistant related pressure injury (stage 4) Thickness: Full Size: 0.5cm x 5.2cm x 0.1cm Tunneling: none Undermining: none Sinus Tract: none Presence of Exudate: Serous Amount: Heavy Color: Red, yellow Odor: None Periwound Skin Appearance: Edema Wound edges: approximated Pain (associated with wound): none at time of assessment How does patient state this happened? pt unable to state how this happened Wound Number: 2 Location of the wound: chin Type of wound: MASD ( due to execessive secretions from mouth and nose ) Thickness: Full Size: 1.5cm x 2.0cm x <0.1cm Tunneling: none Undermining: none Sinus Tract: none Presence of Exudate: Serosanguineous Amount: Moderate Color: Red, yellow, brown Odor: None Periwound Skin Appearance: Edema Wound edges: approximated Pain (associated with wound): none at time of assessment How does patient state this happened? pt unable to state how this happened Wound Number: 3 Location of the wound: right cheek Type of wound: medical receptionist assistant related injury Thickness: Partial Size: 0.7cm x 1.2cm x.1cm Tunneling: none Undermining: none Sinus Tract: none Presence of Exudate: Serous Amount: Moderate Color: [place] Odor: None Periwound Skin Appearance: Edema Wound edges: approximated Pain (associated with wound): none at time of assessment How does patient state this happened? pt unable to state how this happened Wound Number: 4 Location of the wound: left side of nose Thickness: Partial Size: 1.0cm x 0.2cm x 0.1cm Tunneling: none Undermining: none Sinus Tract: none Presence of Exudate: Serous Amount: Moderate Color: Red Odor: None Periwound Skin Appearance: Edema Wound edges: approximated Pain (associated with wound): none at time of assessment How does patient state this happened? pt unable to state how this happeend Wound Number: 5 Location of the wound: left plantar aspect of foot Thickness: Full Size: 2.3cm x 3.0cm x <0.1cm Tunneling: none Undermining: none Sinus Tract: none Presence of Exudate: none Amount: None Color: Purple Odor: None Periwound Skin Appearance: Normal Wound edges: intact blood filled blister Pain (associated with wound): none at time of assessment How does patient state this happened? pt unable to state how this happend Unable to do a complete head to toe assessment due to patient condition at this time. Surface the patient is resting on: XPRT SKIN PREVENTION RECOMMENDATION: 1. Pressure redistribution support surface as appropriate 2. Elevate heels 3. Remove boots/TEDS every shift and reapply 4. Head of bed 30 degrees as tolerated 5. Assess nutrition and hydration 6. Manage moisture 7. Avoid the use of containment devices while in bed 8. Use absorptive products on surfaces limit layers of linens on bed 9. Turn and reposition every 1-2 hours in bed and every 1 hour in chair as tolerated 10. Weight shifts every 15 minutes while up in chair 11. Offloading with pillows or device to keep heels elevated off bed 12. Monitor skin at least every shift 13. Inspect under medical devices twice a day WOUND TREATMENT RECOMMENDATIONS: Full thickness guidelines: Apply sureprep to left plantar aspect of foot allow time to dry then apply optifoam gentle daily and prn for soiling Partial thickness guidelines: Cleanse right side of face, left eyebrow, left side of nose and chin with nss and apply maxorb and cover with optifoam gentle daily and prn for soiling. Heel raiser pro boots to bilateral feet while in bed.
--- NOTE | 2019-06-06 10:45 | NUR ---
all sedation/drips turned off per Dr Hilario
--- NOTE | 2019-06-06 11:49 | NUR ---
MEDICATED WITH PO TYLENOL VIA OG FOR TEMP OF 101.1.
--- NOTE | 2019-06-06 12:09 | NUR ---
ALL DRIP AND SEDATION REMAIN OFF, PT WILL OCC MOVE HEAD SIDE TO SIDE, DOES NOT FOLLOW COMMANDS, SX FOR COPIUS AMOUNTS THICK YELLOW FROM ETT, MOUTH CARE DONE ALL EXTREMETIES EXERCISED, RESTRAINTS SECURE
--- NOTE | 2019-06-06 13:53 | NUR ---
DR SIMEON UPDATED ON PTS ALERTNESS-ONLY ROLLING HEAD BACK AND FORTH AND ATTEMPTS TO RAISE ARMS, BUT IS NOT ABLE SEDATION IS TO REMAIN OFF FOR NOW, AND CALL BACK IF ANY CHANGES
--- NOTE | 2019-06-06 15:03 | NUR ---
TYLENOL INEFFECTIVE, COOLING BLANKET RESUMED FOR JJRB322.5
--- NOTE | 2019-06-06 16:30 | NUR ---
PT REPOSITIONED, ETT SX FOR COPIOUS SECRETIONS, ALL LINES SECURE, TEMP REMAINS ELEVATED 102.0, PT BECAME AGITATED, THRASHING HEAD BACK AND FORTH, OPEND EYES AND ATTEMPTED TO LOOK TOWARD VOICE, PT FORCEFULLY PULLING AT RESTRAINTS,DR SIMEON NOTIFIED, HALDOL GIVEN WITH MODERATE RESULTS, PT CALMED AND STOPPED FORCEFULLY PULLING AT RESTRAINTS, COOLING BLANKET REMAIN IN COOLING MODE
--- NOTE | 2019-06-06 18:25 | NUR ---
RECTAL TEMP 100.6-HYPOTHERMIA BLANKET SET TO MONITOR MODE
--- NOTE | 2019-06-06 19:14 | NUR ---
SPO2 98%. DECREASED PT O2 TO 55%. WILL CONTINUE TO MONITOR
--- NOTE | 2019-06-06 19:47 | NUR ---
ASSUMED CARE FROM JUANJO NELSON. PATIENT REPOSITIONED FOR COMFORT AT THIS TIME. PATIENT OPENS EYES TO VERBAL STIMULI BUT DOESN'T ANSWER ANY QUESTIONS. PATIENT WAS BECOMING AGITATED SO ASSESSMENT QUESTIONS WERE STOPPED AND WILL TRY AGAIN LATER. PATIENT SUCTIONED WITH YANKAR AND LARGE AMOUNT OF CLEAR/WHITE SECRETIONS OBTAINED. HOB ELEVATED TO 30 DEGREES. PATIENT IS SINUS TACH ON THE MONITOR AND ART LINE ZEROED AT THIS TIME. RESIDUAL ON OG TUBE IS 20CC. PLACEMENT CHECKED WITH AUSCULTATION. SOFT WRIST RESTRAINTS CHECKED. FACIAL WOUNDS CLEANSED. SEE ASSESSMENT.
--- NOTE | 2019-06-06 20:45 | NUR ---
patient given tylenol and haldol at this time. patient becoming agitated and temp elevated at 101.3
[2019-06-07] VITALS (16 sets, daily range): BP systolic 109–167; BP diastolic 50–84
--- NOTE | 2019-06-07 01:14 | NUR ---
patient placed back on the cooling blanket at this time. temp is 102.7. tylenol given earlier was ineffective.
--- NOTE | 2019-06-07 01:22 | NUR ---
24 HOUR CHART CHECK COMPLETED AT THIS TIME.
--- NOTE | 2019-06-07 05:52 | NUR ---
PATIENT GIVEN TYLENOL FOR ELEVATED TEMP. WILL CONTINUE TO MONITOR AND REASSESS.
[2019-06-07 06:01] LABS: ABG BASE EXCESS 14.7 mmol/L (-2.0-2.0); ARTERIAL BLOOD GAS PH 7.395 (7.35-7.45)
[2019-06-07 06:16] LABS: HEMATOCRIT 39.8 % (42.0-52.0); MEAN CELL VOLUME 101.5 fl (80.0-94.0); MEAN CORPUSCULAR HGB 30.1 pg (27.0-31.0); MEAN CORPUSCULAR HGB CONC 29.6 g/dl (33.0-37.0); MEAN PLATELET VOLUME 10.8 fl (9.6-12.3); NUCLEATED RED BLOOD CELL 0.1 10*3/uL (0.0-0.0); NUCLEATED RED BLOOD CELL 0.3 % (0.0-0.0); PLATELET COUNT AUTOMATED 461 10*3/uL (130-400); RED BLOOD COUNT 3.92 10*6/uL (4.50-5.90); RED CELL DISTRI WIDTH 15.6 % (0-14.5); WHITE BLOOD COUNT 18.1 10*3/uL (4.8-10.8)
[2019-06-07 06:33] LABS: ALBUMIN 2.6 gm/dl (3.1-4.5); BUN 34 mg/dl (7-24); CHLORIDE 106 mmol/L (98-107); POTASSIUM 4.3 mmol/L (3.5-5.1); SODIUM 147 mmol/L (136-145)
[2019-06-07 06:37] LABS: ALKALINE PHOSPHATASE 81 U/L (45-117); CREATININE 1.05 mg/dL (0.70-1.30); PHOSPHOROUS 2.5 mg/dL (2.5-4.9); SGOT/AST 79 IU/L (3-35); SGPT/ALT 52 U/L (12-78); TOTAL PROTEIN 6.2 gm/dL (6.4-8.2); TRIGLYCERIDES 431 mg/dl (<150)
[2019-06-07 07:23] LABS: BASOPHILS 1 % (0-1); TOTAL CELLS COUNTED 100 #CELLS
[2019-06-07 07:24] LABS: PLATELET SUFFICIENCY HIGH (NORMAL); STOMATOCYTE MODERATE
--- NOTE | 2019-06-07 07:30 | NUR ---
PT HAS REMAINED OFF SEDATION SINCE YESTERDAY AM, PT WILL COUGH, OCC OPENS EYES, MOVES HANDS SLIGHTLY, BUT DOES NOT FOLLOW COMMANDSOR RESPOND TO NAME CALLED, ML, ART, OGT, SAINI REMAIN SECURE, REPOSITIONED, ETT SX FOR COPIOUS YELLOW SECRETIONS
--- NOTE | 2019-06-07 07:49 | NUR ---
BLOOD CULTURES DRAWN ON 06/02 POSITIVE, CALLED TO . NO NEW ORDERS REC'D.
--- NOTE | 2019-06-07 09:30 | NUR ---
PEEP DECREASED TO +18, RN NOTIFIED.
--- NOTE | 2019-06-07 09:30 | NUR ---
PEEP DECREASED TO +18, RN NOTIFIED.
--- NOTE | 2019-06-07 11:00 | NUR ---
BLOOD CULTURES DRAWN, PT AWAKE, MAKING GOOD EYE CONTACT, NODDING HEAD IN RESPONSE TO QUESTIONS, MOVES FEET WHEN INSTRUCTED, MOVES BOTH HANDS INSTRUCTED, EXPLANATIONS GIVEN TO PT CONDITION AND PT NODS UNDERSTANDING AND IS REMAINING CALM
--- NOTE | 2019-06-07 11:30 | NUR ---
CONSENT FORM GELY DONNELLY AT THE HALF-WAY
--- NOTE | 2019-06-07 12:42 | NUR ---
HALDOL GIVEN PRIOR TO PICC PLACEMENT WITH GOOD RESULTS
[2019-06-07 14:07] LABS: ABG BASE EXCESS 13.8 mmol/L (-2.0-2.0); ARTERIAL BLOOD GAS PH 7.475 (7.35-7.45)
--- NOTE | 2019-06-07 14:15 | NUR ---
PT RESHACKLED PER [facility] POLICIES, SINCE PT IS NO LONGER SEDATED AND PARALYZED
--- NOTE | 2019-06-07 14:56 | NUR ---
DR UNGER HERE WHEN [facility] CALLED [facility] PICC, AND A REPEAT CXR ORDERED THEY CAN NOT SEE THE PLACEMENT RAD TO FLOOR TO REPEAT CXR, THEN STAFF WAS INFORMED THAT AN ADDENDUM HAS BEEN REPORTED TAHT THE PLACEMENT HAD BEEN CONFIRMED BY [facility] NO REPEAT CXR WAS EVER DONE, PLACEMENT CONFIRMED ON THE ORGINAL CXR WILL WAIT TILL AM FOR A REPEAT CXR TO DOUBLE CONFIRM PLACEMENT, PICC NOT BEING USE, CENTRAL LINE REMAINS, PULL PULL AND CULTURE TIP TOMORROW AFTER CXR REPEATED
--- NOTE | 2019-06-07 16:58 | NUR ---
REPOSITIONED, PT REMAINS COOPERATIVE, OPENS EYES WHEN NAME IS CALLED, NODS HEAD IN RESPONSE TO QUESTIONS, PIÑA EQUALLY, PICC LINE CONFIRMED
--- NOTE | 2019-06-07 20:58 | NUR ---
BED BATH PERFORMED AND LINENS CHANGED. PICC DRESSING WAS SATURATED AND CHANGED. PATIENT SUCTIONED WITH ENCLOSED SYSTEM FOR A LARGE AMOUNT OF SPUTUM. PATIENT TOLERATED WELL. SEE ASSESSMENT.
--- NOTE | 2019-06-07 23:00 | NUR ---
O2 DECREASED TO 40%. SPO2 95. WILL CONTINUE TO MOITOR
[2019-06-08] VITALS (12 sets, daily range): BP systolic 112–134; BP diastolic 50–68
--- NOTE | 2019-06-08 04:15 | NUR ---
HALDOL GIVEN AT THIS TIME. PATIENT BECOMING RESTLESS AND STARTING TO PULL AT RESTRAINTS. WILL CONTINUE TO MONITOR AND REASSESS.
--- NOTE | 2019-06-08 04:40 | NUR ---
PICC LINE WAS BLEEDING WITH CLOTS PRESENT AT THE SITE OF INSERTION. DRESSING WAS REMOVED AND CLEANSED. NEW PICC LINE DRESSING APPLIED AT THIS TIME.
--- NOTE | 2019-06-08 05:00 | NUR ---
TYLENOL GIVEN DUE TO ELEVATED TEMP. WILL CONTINUE TO MONITOR.
[2019-06-08 05:29] LABS: ABG BASE EXCESS 12.2 mmol/L (-2.0-2.0); ARTERIAL BLOOD GAS PH 7.45 (7.35-7.45)
[2019-06-08 05:53] LABS: HEMATOCRIT 35.6 % (42.0-52.0); MEAN CELL VOLUME 100.6 fl (80.0-94.0); MEAN CORPUSCULAR HGB 29.9 pg (27.0-31.0); MEAN CORPUSCULAR HGB CONC 29.8 g/dl (33.0-37.0); MEAN PLATELET VOLUME 10.7 fl (9.6-12.3); NUCLEATED RED BLOOD CELL 0.1 10*3/uL (0.0-0.0); NUCLEATED RED BLOOD CELL 0.4 % (0.0-0.0); PLATELET COUNT AUTOMATED 362 10*3/uL (130-400); RED BLOOD COUNT 3.54 10*6/uL (4.50-5.90); RED CELL DISTRI WIDTH 15.8 % (0-14.5); WHITE BLOOD COUNT 16.1 10*3/uL (4.8-10.8)
[2019-06-08 06:25] LABS: ALBUMIN 2.3 gm/dl (3.1-4.5); BUN 34 mg/dl (7-24); CHLORIDE 109 mmol/L (98-107); POTASSIUM 4.1 mmol/L (3.5-5.1); SODIUM 149 mmol/L (136-145)
[2019-06-08 06:29] LABS: ALKALINE PHOSPHATASE 73 U/L (45-117); CREATININE 0.98 mg/dL (0.70-1.30); PHOSPHOROUS 3.5 mg/dL (2.5-4.9); SGOT/AST 60 IU/L (3-35); SGPT/ALT 49 U/L (12-78); TOTAL PROTEIN 5.8 gm/dL (6.4-8.2); TRIGLYCERIDES 449 mg/dl (<150)
[2019-06-08 06:44] LABS: PLATELET SUFFICIENCY NORMAL (NORMAL); STOMATOCYTE MODERATE; TOTAL CELLS COUNTED 100 #CELLS
--- NOTE | 2019-06-08 07:48 | NUR ---
LIP @ 26 CM. P/F RATIO:205, PLATEAU PRESSURE:23, DRIVING PRESSURE:9 RN AWARE.
--- NOTE | 2019-06-08 08:00 | NUR ---
PT RESTING COMFORTABLY. ALERT TO VOICE AND FOLLOWING COMMANDS APPROPRIATELY. SCATTERED RHONCHI WITH THICK YELLOW SECRETIONS. ORAL CARE GIVEN, NOTED TO HAVE BLISTERING TO LIPS AND BLEEDING. DR UNGER MADE AWARE. POX 88-90 WITH FIO2 DECREASED TO 35%. ROMERO PRESENT AND MONITORING CHANGES. VITAL SIGNS STABLE. OGT PATENT WITH PLACEMENT VERIFIED VIA AIR BOLUS. GLUCERNA INFUSING ORDERED. GENERALIZED EDEMA NOTED. SAINI INTACT WITH CLEAR YELLOW URINE. GENERALIZED EDEMA NOTED.
[2019-06-08 09:13] LABS: ABG BASE EXCESS 13.1 mmol/L (-2.0-2.0); ARTERIAL BLOOD GAS PH 7.474 (7.35-7.45)
--- NOTE | 2019-06-08 11:30 | NUR ---
PT TURNED AND REPOSITIONED. TYLENOL GIVEN FOR A TEMP OF 101. WILL MONITOR.
--- NOTE | 2019-06-08 14:00 | NUR ---
Dr. Hilario here, rounding. reviewed labs, vitals, and assessment. new carson received.
--- NOTE | 2019-06-08 16:00 | NUR ---
PATIENT REPOSITIONED. ALERT AND AWAKE. NODS APPROPRIATELY TO QUESTIONS. MLC REMOVED AT THIS TIME. TIP SENT FOR CULTURE. RIGHT ARM PICC LINE BLEEDING AT SITE. DRESSING REMOVED AND PRESSURE DRESSING APPLIED. WILL CONTINUE TO MONITOR.
[2019-06-08 16:04] LABS: ABG BASE EXCESS 11.2 mmol/L (-2.0-2.0); ARTERIAL BLOOD GAS PH 7.465 (7.35-7.45)
--- NOTE | 2019-06-08 20:13 | NUR ---
SPOKE WITH DR. SIMEON. WILL HOLD OFF OF STARTING HEPARIN THERAPY UNTIL THE MORNING DUE TO BLEEDING FROM THE PICC LINE.
--- NOTE | 2019-06-08 22:00 | NUR ---
PICC LINE REDRESSED USING GEL FOAM TO HELP STOP BLEEDING. PATIENT HOB ELEVATED. PATIENT ABLE TO RESPOND TO STIMULI AND ANSWERS YES AND NO QUESTIONS APPROPRIATELY. PATIENT DENIES ANY PAIN AT THIS TIME. NSR ON COLD ROLLING COORDINATOR. ART LINE ZEROED AT THIS TIME. SEE ASSESSMENT.
[2019-06-09] VITALS (12 sets, daily range): BP systolic 116–153; BP diastolic 62–80
--- NOTE | 2019-06-09 01:00 | NUR ---
PATIENT SUCTIONED AT THIS TIME WITH YANKAR AND ENCLOSED SUCTION SYSTEM. LARGE AMOUNT OF YELLOW/WHITE SPUTUM OBTAINED. PATIENT TOLERATED WELL.
--- NOTE | 2019-06-09 03:08 | NUR ---
24 HOUR CHART CHECK COMPLETED.
[2019-06-09 04:46] LABS: HEMATOCRIT 37.1 % (42.0-52.0); MEAN CORPUSCULAR HGB 30.5 pg (27.0-31.0); MEAN CORPUSCULAR HGB CONC 30.5 g/dl (33.0-37.0); MEAN PLATELET VOLUME 10.9 fl (9.6-12.3); NUCLEATED RED BLOOD CELL 0.1 10*3/uL (0.0-0.0); NUCLEATED RED BLOOD CELL 0.9 % (0.0-0.0); PLATELET COUNT AUTOMATED 321 10*3/uL (130-400); RED BLOOD COUNT 3.71 10*6/uL (4.50-5.90); RED CELL DISTRI WIDTH 16.3 % (0-14.5); WHITE BLOOD COUNT 15.5 10*3/uL (4.8-10.8)
[2019-06-09 05:05] LABS: ACT PARTIAL THROMBO TIME 24.5 SECONDS (20.0-32.1)
[2019-06-09 05:16] LABS: ALBUMIN 2.4 gm/dl (3.1-4.5); ALKALINE PHOSPHATASE 76 U/L (45-117); BASOPHILS 1 % (0-1); BUN 29 mg/dl (7-24); CHLORIDE 112 mmol/L (98-107); CREATININE 1.04 mg/dL (0.70-1.30); PLATELET SUFFICIENCY NORMAL (NORMAL); POTASSIUM 4.2 mmol/L (3.5-5.1); SGOT/AST 59 IU/L (3-35); SGPT/ALT 45 U/L (12-78); SODIUM 147 mmol/L (136-145); TOTAL CELLS COUNTED 100 #CELLS; TOTAL PROTEIN 6.3 gm/dL (6.4-8.2); TRIGLYCERIDES 420 mg/dl (<150)
[2019-06-09 05:40] LABS: ARTERIAL BLOOD GAS PH 7.492 (7.35-7.45)
--- NOTE | 2019-06-09 08:15 | NUR ---
Patient asynchronous with ventilator frequently double triggering. Plateau pressure checked and is 24. Increase VT to 8ml/kg. Patient now synchronous with ventilator. Plateau pressure is now 26 and patient's RR has dropped by 10 BPM. RR now 27 BPM. SPO2: 94%. Patient is comfortable at this time.
[2019-06-09 10:08] LABS: ABG BASE EXCESS 6.3 mmol/L (-2.0-2.0); ARTERIAL BLOOD GAS PH 7.489 (7.35-7.45)
[2019-06-09 13:11] LABS: ABG BASE EXCESS 5.5 mmol/L (-2.0-2.0); ARTERIAL BLOOD GAS PH 7.47 (7.35-7.45)
[2019-06-09 15:14] LABS: ABG BASE EXCESS 4.3 mmol/L (-2.0-2.0); ARTERIAL BLOOD GAS PH 7.464 (7.35-7.45)
--- NOTE | 2019-06-09 15:26 | NUR ---
CALLED IN. UPDATED ON PATIENT CONDITION. NO NEW ORDERS RECEIVED.
--- NOTE | 2019-06-09 20:23 | NUR ---
PT. RESTING COMFORTABLY. AROUSES TO VERBAL STIMULI. PICC IN RIGHT UPPER ARM INTACT. HEPARIN INFUSING ORDERED. L ARTIAL LINE INTACT, LEVELED, ZEROED AND FLUSHED. SOFT WRIST RESTRAINTS BILAT TO PREVENT ACCIDENTAL SELF-EXTUBATION. SAINI DRAINING A CLEAR YELLOW URINE. GENERALIZED DEPENDENT EDEMA. ORAL MOUTH CARE GIVEN AND PT. SUCTIONED VIA ENDO FOR MODERATE AMT OF MUCOUS. LUNGS HAVE RHONCHI BILAT, PLUSE OX 93% ON 45% FIO2. PT. PLACED ON COOLING BLANKED FOR RECTAL TEMP OF 103.2. TYLENOL THAT WAS GIVEN AT 1600 INEFFECTIVE. TYLENOL GIVEN ORDERED AGAIN FOR ELEV TEMP AFTER PLACING ON COOLING BLANKET. WILL CONTINUE TO MONITOR. LAURYN RUVALCABA RN
--- NOTE | 2019-06-09 20:59 | NUR ---
CURRENT RECTAL TEMP 102.5, WILL CONTINUE TO MONITOR.
--- NOTE | 2019-06-09 21:45 | NUR ---
DR. RODRIGUEZ NOTIFIED OF TEMP OF 103.2 WHICH IS CURRENTLY DOWN TO 102.2. AND PT PLACED ON COOLING BLANKET AT BEGINNING OF SHIFT AND TYLENOL ADMINISTRATION, ORDERS RECEIVED. LAURYN RUVALCABA RN
--- NOTE | 2019-06-09 23:28 | NUR ---
PT. GIVEN TYLENOL ORDERED AT 2311 FOR CONTINUED TEMP OF 101. WILL CONTINUE TO MONITOR. LAURYN RUVALCABA RN
[2019-06-10] VITALS (10 sets, daily range): BP systolic 113–164; BP diastolic 56–86
--- NOTE | 2019-06-10 00:03 | NUR ---
PLATEAU PRESSURE:20 DRIVE:10, P/F RATIO:217
--- NOTE | 2019-06-10 00:58 | NUR ---
CURRENT TEMP 99.8, PT. REMAINS ON COOLING BLANKET. LAURYN RUVALCABA RN
[2019-06-10 04:47] LABS: ARTERIAL BLOOD GAS PH 7.405 (7.35-7.45)
[2019-06-10 05:38] LABS: ALBUMIN 2.3 gm/dl (3.1-4.5); ALKALINE PHOSPHATASE 74 U/L (45-117); BUN 32 mg/dl (7-24); CHLORIDE 111 mmol/L (98-107); CREATININE 0.87 mg/dL (0.70-1.30); PHOSPHOROUS 3.3 mg/dL (2.5-4.9); SGOT/AST 51 IU/L (3-35); SGPT/ALT 41 U/L (12-78); SODIUM 142 mmol/L (136-145); TOTAL PROTEIN 6.3 gm/dL (6.4-8.2)
--- NOTE | 2019-06-10 05:45 | NUR ---
PT. GIVEN TYLENOL AT 0430 FOR TEMP OF 99.7. REMAINS ON COOLING BLANKET. WILL CONTINUE TO MONITOR. LAURYN RUVALCABA RN
[2019-06-10 06:05] LABS: HEMATOCRIT 35.2 % (42.0-52.0); MEAN CELL VOLUME 99.2 fl (80.0-94.0); MEAN CORPUSCULAR HGB 30.4 pg (27.0-31.0); MEAN CORPUSCULAR HGB CONC 30.7 g/dl (33.0-37.0); MEAN PLATELET VOLUME 12.5 fl (9.6-12.3); NUCLEATED RED BLOOD CELL 0.1 10*3/uL (0.0-0.0); NUCLEATED RED BLOOD CELL 0.5 % (0.0-0.0); PLATELET COUNT AUTOMATED 311 10*3/uL (130-400); RED BLOOD COUNT 3.55 10*6/uL (4.50-5.90); RED CELL DISTRI WIDTH 16.6 % (0-14.5); WHITE BLOOD COUNT 16.7 10*3/uL (4.8-10.8)
[2019-06-10 06:51] LABS: TOTAL CELLS COUNTED 100 #CELLS
[2019-06-10 06:52] LABS: PLATELET SUFFICIENCY NORMAL (NORMAL)
[2019-06-10 07:49] LABS: ACT PARTIAL THROMBO TIME > 139.0 SECONDS (20.0-32.1)
--- NOTE | 2019-06-10 08:34 | NUR ---
CHEVY GUZMÁN [id number] Please refer to the physician's history and physical for past medical history, comorbid conditions, and allergies. Diagnosis: SUSPECTIVE COVID-2019 INFECTION RESPIRATORY Judson Score: 13,MODERATE RISK WOUND DESCRIPTIONS: New skin impairment: Wound Number: 6 Location of the wound: right side of scrotum Type of wound: stage 2 Thickness: Partial Size: 1.0cm x 1.0cm x 0.1cm Tunneling: none Undermining: none Sinus Tract: none Presence of Exudate: Serous Amount: Light Color: Red Odor: None Periwound Skin Appearance: Normal Wound edges: approximated Pain (associated with wound): none at time of assessment How does patient state this happened? pt unable to state how this happened Wound Number: 7 Location of the wound: right hip Type of wound: DTI Size: 4.5cm x 5.3cm x <0.1cm Tunneling: none Undermining: none Sinus Tract: none Presence of Exudate: none Amount: None Color: Purple, dark red Odor: None Periwound Skin Appearance: Normal Wound edges: intact blood filled blister Pain (associated with wound): none at time of assessment How does patient state this happened? pt unable to state how this happened Wound Number: 8 Location of the wound: left buttocks Type of wound: medical consultant related pressure injury (stage 2) Thickness: Partial Size: 0.5cm x 1.0cm x <0.1cm Tunneling: none Undermining: none Sinus Tract: none Presence of Exudate: none Amount: None Color: [place] Odor: None Periwound Skin Appearance: Normal Wound edges: intact serum filled blister Pain (associated with wound): none at time of assessment How does patient state this happened? pt unable to state how this happened Surface the patient is resting on: XPRT SKIN PREVENTION RECOMMENDATION: 1. Pressure redistribution support surface as appropriate 2. Elevate heels 3. Remove boots/TEDS every shift and reapply 4. Head of bed 30 degrees as tolerated 5. Assess nutrition and hydration 6. Manage moisture 7. Avoid the use of containment devices while in bed 8. Use absorptive products on surfaces limit layers of linens on bed 9. Turn and reposition every 1-2 hours in bed and every 1 hour in chair as tolerated 10. Weight shifts every 15 minutes while up in chair 11. Offloading with pillows or device to keep heels elevated off bed 12. Monitor skin at least every shift 13. Inspect under medical devices twice a day WOUND TREATMENT RECOMMENDATIONS: Stage 2 guidelines: Cleanse left buttocks with nss and apply sureprep to wound allow time to dry then cover with optifoam gentle every 2 days and prn for soiling. DTI guidelines: Cleanse right hip with nss and apply surepre to wound allow time to dry then cover with optifoam gentle every 2 days and prn for soiling. Cleanse right scrotum with soap and water and apply calazime every shift and prn for soiling. Heel raiser pro boots to bilateral feet while in bed.
[2019-06-10 13:37] LABS: ABG BASE EXCESS -0.1 mmol/L (-2.0-2.0); ARTERIAL BLOOD GAS PH 7.399 (7.35-7.45)
--- NOTE | 2019-06-10 15:21 | NUR ---
Nutritional Support Services Note: Pt on vent. OGT as ordered. Pt has hx of NIDDM, obesity, GERD. Ht.5'9 Wt.320# IBW 150-170. Pt is approx 150# above upper limit of IBW range. Wounds noted. Receiving Glucerna via OGT at 70cc/hr. Tube feeding is providing pt with 1681cc/ 1680cal daily. Tf is providing pt with 64gr of protein daily. He requires approx 145gr of protein daily to promote healing of wounds. Recommend Beneprotein packet added to tube feedings- 4 packets daily to increase protein. Will follow as needed. Marlene Lopez Rdn Ld
[2019-06-10 16:48] LABS: ABG BASE EXCESS -0.3 mmol/L (-2.0-2.0); ARTERIAL BLOOD GAS PH 7.409 (7.35-7.45)
--- NOTE | 2019-06-10 20:12 | NUR ---
PT. RESTING IN BED, EYES FOLLOW NURSE. RESPONDS APPRORIATELY BY NODDING IN RESPONSE TO QUESTIONS. HEPARIN DRIP CONTINUES ORDERED. ART LINE LEVELED, ZEROED AND FLUSHED PER POLICY. LUNGS HAVE RHONCHI BILAT. ABDOMEN SOFTLY DISTENDED AND HYPOACTIVE. GENERALIZED EDEMA NOTED. SAINI DRAINING A CLEAR YELLOW URINE. OGT HAS TF INFUSING AT 70CC/HR, NO RESIDUAL WAS NOTED. PLACEMENT CONFIRMED WITH AIR BOLUS. ORAL MOUTH CARE GIVEN AND PT SUCTIONED FOR MODERATE AMTS OF YELLOW/WHITE MUCOUS VIA ENDO. SOFT WRIST RESTRAINTS BILAT TO PREVENT ACCIDENTAL SELF-EXTUBATION. CURRENT TEMP 101.0, COOLING BLANKED PLACED BACK ON (PREVIOUSLY ON MONITOR ONLY). WILL CONTINUE TO MONITOR. LAURYN RUVALCABA RN
[2019-06-11] VITALS (16 sets, daily range): BP systolic 102–156; BP diastolic 32–81
--- NOTE | 2019-06-11 00:13 | NUR ---
PT. GIVEN TYLENOL AT 2045 FOR TEMP OF 101.0 VIA RECTAL PROBE. CURRENT TEMP 99.8 TYLENOL EFFECTIVE.
[2019-06-11 05:31] LABS: ABG BASE EXCESS -0.2 mmol/L (-2.0-2.0); ARTERIAL BLOOD GAS PH 7.414 (7.35-7.45)
[2019-06-11 05:38] LABS: ALBUMIN 2.2 gm/dl (3.1-4.5); ALKALINE PHOSPHATASE 71 U/L (45-117); BUN 27 mg/dl (7-24); CHLORIDE 112 mmol/L (98-107); CREATININE 0.79 mg/dL (0.70-1.30); PHOSPHOROUS 2.9 mg/dL (2.5-4.9); POTASSIUM 4.1 mmol/L (3.5-5.1); PREALBUMIN 21 mg/dl (20-40); SGOT/AST 47 IU/L (3-35); SGPT/ALT 44 U/L (12-78); SODIUM 141 mmol/L (136-145); TOTAL PROTEIN 6.3 gm/dL (6.4-8.2)
[2019-06-11 06:17] LABS: HEMATOCRIT 34.6 % (42.0-52.0); MEAN CELL VOLUME 97.7 fl (80.0-94.0); MEAN CORPUSCULAR HGB 30.2 pg (27.0-31.0); MEAN CORPUSCULAR HGB CONC 30.9 g/dl (33.0-37.0); MEAN PLATELET VOLUME 12.9 fl (9.6-12.3); NUCLEATED RED BLOOD CELL 0.1 10*3/uL (0.0-0.0); NUCLEATED RED BLOOD CELL 0.6 % (0.0-0.0); PLATELET COUNT AUTOMATED 280 10*3/uL (130-400); RED BLOOD COUNT 3.54 10*6/uL (4.50-5.90); RED CELL DISTRI WIDTH 16.6 % (0-14.5); WHITE BLOOD COUNT 10.6 10*3/uL (4.8-10.8)
[2019-06-11 07:16] LABS: PLATELET SUFFICIENCY NORMAL (NORMAL); TOTAL CELLS COUNTED 100 #CELLS
[2019-06-11 07:17] LABS: POLYCHROMASIA SLIGHT
[2019-06-11 07:24] LABS: ACT PARTIAL THROMBO TIME 52.7 SECONDS (20.0-32.1)
--- NOTE | 2019-06-11 08:00 | NUR ---
PT RESTING COMFORTABLY. VSS. ALERT AND RESPONDING APPROP WITH NODDING AND ATTEMPTING TO TALK. SCATTERED RHONCHI, POX 96% W/ FIO2 30%. SUCTIONED FOR THICK GRADY SECRETIONS, YANKAR. ORAL CARE GIVEN. AGUAPHOR APPLIED TO LIPS. OGT PATENT WITH GLUCERNA @ 70CC/HR. PLACEMENT VERIIFIED VIA AIR BOLUS. NO RESIDUAL. ABF SOFT, DISTENDED, NORMOACTIVE BS. NO BM SINCE 06/05, COLACE DAILY. GENERALIZED EDEMA TO EXTREMTIES. SAINI PATENT DRAINING CLEAR YELLOW URINE. WILL MONITOR.
--- NOTE | 2019-06-11 09:30 | NUR ---
DR SIMEON IS HERE, REVIEWED ASSESSMENT, LABS. NEW ORDERS RECEIVED.
--- NOTE | 2019-06-11 11:30 | NUR ---
PT RESTING COMFORTABLE. REMAINS TO RESPOMD APPROP. SUCTIONED FOR A LARGE AMOUNT THICK YELLOW-GRADY BOTH ENCLOSED AND VIA YANKAR. ORAL CARE GIVEN. LOPS REMAIN SWOLLEN AND WITH SORES. AQUAPHOR APPLIED. TEMP REMAINS 100. COOLING BLANKET PLACED IN MONITOR MODE. SAINI DRAINED FOR 550 PRIOR TO LASIX GIVEN. VITALS STABLE. ENDOTUBE PULLED OUT 1CM TO 25CM AT THE LIP ORDERED. WILL MONITOR.
--- NOTE | 2019-06-11 12:58 | NUR ---
FIO2 DECREASED TO 25%
[2019-06-11 15:20] LABS: ABG BASE EXCESS 0.9 mmol/L (-2.0-2.0); ARTERIAL BLOOD GAS PH 7.456 (7.35-7.45)
--- NOTE | 2019-06-11 16:30 | NUR ---
PT A/O X3. REPONDS APPROP. WITH NODDING HEAD AND MOUTHING WORDS. ENDO TUBE 25 CM AT LIP. OGT SECURE AND PLACEMENT CHECKED WITH AIR BOLUS. HEPARIN GTT CONTINUES AT 15U/K/21.6/HR. SAINI PATENT. ORAL CARE DONE. COOLING BLANKE INPLACE ON MONITOR. ARTERIAL LINE CALIBRATED. GOOD WAVE FORM NOTED. VSS. DENIES DISCOMFORT. ABD SOFT AND NONDISTENDED WITH +BS X 4. NO EDEMA NOTED. NILSA CRENSHAWRN
--- NOTE | 2019-06-11 20:06 | NUR ---
PT. GIVEN TYLENOL ORDERED FOR TEMP OF 100.8 AND GENERALIZED DISCOMFORT. ART LINE LEVELED, ZEROED AND FLUSHED PER POLICY. OGT PLACEMENT CONFIRMED WITH AIR BOLUS AND TUBE FEEDING CONTINUES ORDERED AT 70CC'S/HR. LUNGS HAVE RHONCHI BILAT, PULSE OX 91% ON 25% FIO2. PT. REPOSITIONED AND PLACED OFF/ON BED OLIVEIRA PRIOR. SMALL STICKY BROWN BM. ORAL MOUTH CARE GIVEN AND PT. SUCTIONED FOR MODERATE AMT OF THICK MUCOUS. GENERALIZED EDEMA NOTED THROUGHOUT. SAINI CATHETER DRAINING A DARK YELLOW URINE. HEPARIN CONTINUES ORDERED, SITE IN RIGHT UPPER ARM PICC ASYMPT. COOLING BLANKLET REMAINS ON BED IN MONITOR MODE. PT. REPOSITIONED FOR COMFORT. LAURYN RUVALCABA RN
[2019-06-12] VITALS (27 sets, daily range): BP systolic 112–150; BP diastolic 46–79
--- NOTE | 2019-06-12 03:14 | NUR ---
PT. GIVEN TYLENOL AT 0300 FOR TEMP OF 101.4, COOLING BLANKET ON. WILL CONTINUE TO MONITOR. PT. GRABBED AT ET TUBE WHILE ATTEMPTING TO CLEAN BM. GRABBED TUBING WHICH FROM ENDO. ENDO REMAINS INTACT, HAD RESP CHECK TO MAKE SURE, PULSE OX MAINTAINED AT 94% CURRENTLY. LAURYN RUVALCABA RN
--- NOTE | 2019-06-12 05:03 | NUR ---
CURRENT TEMP 100.3, COOLING BLANKET REMAINS ON AND TYLENOL EFFECTIVE. LAURYN RUVALCABA RN
[2019-06-12 05:29] LABS: ALBUMIN 2.2 gm/dl (3.1-4.5); ALKALINE PHOSPHATASE 81 U/L (45-117); BUN 24 mg/dl (7-24); CHLORIDE 112 mmol/L (98-107); CREATININE 0.89 mg/dL (0.70-1.30); POTASSIUM 3.6 mmol/L (3.5-5.1); SGOT/AST 45 IU/L (3-35); SGPT/ALT 41 U/L (12-78); SODIUM 142 mmol/L (136-145); TOTAL PROTEIN 6.4 gm/dL (6.4-8.2)
[2019-06-12 05:53] LABS: ABG BASE EXCESS -2.3 mmol/L (-2.0-2.0); ARTERIAL BLOOD GAS PH 7.415 (7.35-7.45)
[2019-06-12 06:06] LABS: HEMATOCRIT 34.1 % (42.0-52.0); MEAN CELL VOLUME 96.3 fl (80.0-94.0); MEAN CORPUSCULAR HGB 29.9 pg (27.0-31.0); MEAN CORPUSCULAR HGB CONC 31.1 g/dl (33.0-37.0); MEAN PLATELET VOLUME 13.8 fl (9.6-12.3); NUCLEATED RED BLOOD CELL 0.1 10*3/uL (0.0-0.0); NUCLEATED RED BLOOD CELL 1.2 % (0.0-0.0); PLATELET COUNT AUTOMATED 253 10*3/uL (130-400); RED BLOOD COUNT 3.54 10*6/uL (4.50-5.90); RED CELL DISTRI WIDTH 16.4 % (0-14.5); WHITE BLOOD COUNT 8.3 10*3/uL (4.8-10.8)
[2019-06-12 06:29] LABS: ACT PARTIAL THROMBO TIME 61.8 SECONDS (20.0-32.1)
[2019-06-12 07:15] LABS: BASOPHILS 2 % (0-1); POLYCHROMASIA SLIGHT; TOTAL CELLS COUNTED 100 #CELLS
[2019-06-12 07:16] LABS: PLATELET SUFFICIENCY NORMAL (NORMAL)
--- NOTE | 2019-06-12 10:00 | NUR ---
DR SIMEON HERE FOR ROUNDING. REVIEWED ASSESSMENT AND LABS. PLAN OF CARE REVIEWED AND NEW ORDERS RECEIVED.
--- NOTE | 2019-06-12 11:30 | NUR ---
PT RESTING, MORE ALERT. ANSERING ME APPROP BLINKING AND NODDING. SUCTIONED FOR SMALL AMOUNT THICK YELLOW. ORAL CARE GIVEN. RESP PRESENT PEEP DECREASED TO 6. WILL MONITOR.
[2019-06-12 13:42] LABS: ABG BASE EXCESS -2.4 mmol/L (-2.0-2.0); ARTERIAL BLOOD GAS PH 7.405 (7.35-7.45)
--- NOTE | 2019-06-12 16:23 | NUR ---
INITIAL ASSESSMENT COMPLETED.HEPARIN GTT INFUSING AT 21.6 ML/HR,15 UNITS/KG/MG. ET 25 CM AT LIP. CPAP 10/5 @ 25% RESP 28. PT ALERT AND ORIENTED. ABLE TO COMMUNICATE NEEDS.GLUCERNA OG WITH TF @ 70 ML/HR.SAINI PATENT WITH 200 CC VASILE URINE.VANCO TROUGH DRAWN WITHOUT DIFFICULTY. VOICES NO OTHER NEEDS. BILATERAL WRIST RESTRAINTS INTACT. ALARM INTACT. CALL LIGHT IN REACH.
--- NOTE | 2019-06-12 16:40 | NUR ---
NOTIFIED DR STEPHENS OF CRITICAL VANCO TROUGH OF 20.6.NO NEW ORDERS. NOTIFIED PHARMACIST
[2019-06-12 17:08] LABS: ABG BASE EXCESS -1.7 mmol/L (-2.0-2.0); ARTERIAL BLOOD GAS PH 7.414 (7.35-7.45)
--- NOTE | 2019-06-12 18:18 | NUR ---
PT REPOSOTIONED FOR COMFORT. MOUTRHCARE PROVIDED. PT REQUESTING RT TO LOOSEN TUBE TAMER. PRESSURE ON LIP HURTS PER PT,MOUTHING WORDS.PT STABLE ON CPAP @ 25% FIO2. WILL NOTIFY RT.PT STABLE AT THIS TIME. CALL LIGHT IN REACH.
[2019-06-12 19:21] LABS: ABG BASE EXCESS -1.4 mmol/L (-2.0-2.0); ARTERIAL BLOOD GAS PH 7.416 (7.35-7.45)
--- NOTE | 2019-06-12 20:00 | NUR ---
PT RESTING IN BED AWAKE AND ALERT, NODDING HEAD WHEN ASKED QUESTIONS. ENDOTUBE PATENT, TIES SECURE, VENT SETTINGS VERIFIED AND FUNCTIONING WITHOUT DIFFICULTY. OGT PATENT AND PLACEMENT VERIFIED VIA AIR BOLUS. RIGHT PICC PATENT, DRESSING DRY AND INTACT. LEFT ART LINE PATENT, DRESSING DRY AND INTACT, FLUSHED WITH EASE. HEPARIN GTT INFUSING ORDERED WITHOUT DIFFICULTY. SAINI PATENT FOR CLEAR VASILE URINE. NO ACUTE DISTRESS NOTED. PT DENIES ANY PAIN OR DISCOMFORT AT THIS TIME. ISOLATION PRECAUTIONS MAINTAINED.
--- NOTE | 2019-06-12 23:00 | NUR ---
Pt switched back to AC-VC for the night from CPAP to rest. Tolerating well. HR 93 SpO2 98% Will switch him back to CPAP in the morning as tolerated.
[2019-06-13] VITALS (24 sets, daily range): BP systolic 104–168; BP diastolic 55–88
--- NOTE | 2019-06-13 | NUR ---
PT RESTING IN BED WATCHING TV, ALERT AND CALM. ENDOTUBE PATENT AND FUNCTIONING WIHTOUT DIFFICULTY. NO ACUTE DISTRESS NOTED. DENIES ANY PAIN OR DISCOMFORT. HEPARIN INFUSING WITHOUT DIFFICULTY. NO S/S OF HYPO/HYPERGLYCEMIA NOTED.
[2019-06-13 05:24] LABS: ALBUMIN 2.1 gm/dl (3.1-4.5); ALKALINE PHOSPHATASE 71 U/L (45-117); BUN 20 mg/dl (7-24); CHLORIDE 110 mmol/L (98-107); CREATININE 0.72 mg/dL (0.70-1.30); PHOSPHOROUS 2.8 mg/dL (2.5-4.9); POTASSIUM 3.9 mmol/L (3.5-5.1); SGOT/AST 41 IU/L (3-35); SGPT/ALT 49 U/L (12-78); SODIUM 140 mmol/L (136-145); TOTAL PROTEIN 6.2 gm/dL (6.4-8.2)
[2019-06-13 05:27] LABS: ABG BASE EXCESS 1.1 mmol/L (-2.0-2.0); ARTERIAL BLOOD GAS PH 7.452 (7.35-7.45)
[2019-06-13 06:09] LABS: HEMATOCRIT 32.8 % (42.0-52.0); MEAN CELL VOLUME 97.6 fl (80.0-94.0); MEAN CORPUSCULAR HGB 30.4 pg (27.0-31.0); MEAN CORPUSCULAR HGB CONC 31.1 g/dl (33.0-37.0); MEAN PLATELET VOLUME 13.7 fl (9.6-12.3); NUCLEATED RED BLOOD CELL 0.2 10*3/uL (0.0-0.0); NUCLEATED RED BLOOD CELL 2.1 % (0.0-0.0); PLATELET COUNT AUTOMATED 245 10*3/uL (130-400); RED BLOOD COUNT 3.36 10*6/uL (4.50-5.90); RED CELL DISTRI WIDTH 16.7 % (0-14.5)
[2019-06-13 07:17] LABS: BASOPHILS 1 % (0-1); PLATELET SUFFICIENCY NORMAL (NORMAL); POLYCHROMASIA SLIGHT; TARGET CELLS FEW; TOTAL CELLS COUNTED 100 #CELLS
--- NOTE | 2019-06-13 07:25 | NUR ---
INITIAL ASSESSMENT COMPLETE.PT PLACED ON CPAP 11/30 @ 25% FI02.SP02 90%. RT AT BEDSIDE CHANGED TUBE TAMER. MODERATE SECRETIONS NOTED. MOUTHCARE PROVIDED. PT TOLERATED WELL. WOUNDCARE RN AT BEDSIDE. DRESSING CHANGES PROVIDED. LABS OBTAINED WITHOUT DIFFICULTY.PT VOICES NO OTHER NEEDS AT THIS TIME. CALL LIGHT IN REACH.
--- NOTE | 2019-06-13 07:30 | NUR ---
AERO TX NOT GIVEN AT 0730, DUE TO AEROGEN NOT WORKING.
--- NOTE | 2019-06-13 08:25 | NUR ---
ARIELLESTEPHANIECHEVY [id number] Please refer to the physician's history and physical for past medical history, comorbid conditions, and allergies. Diagnosis: SUSPECTIVE COVID-2019 INFECTION RESPIRATORY Judson Score: 13,MODERATE RISK WOUND DESCRIPTIONS: Wound Number: 1 Location of the wound: Left eyebrow Type of wound: emergency medical technician related pressure injury (stage 4) Thickness: Full Size: 0.5cm x 2.0cm x 0.1cm Tunneling: none Undermining: none Sinus Tract: none Presence of Exudate: Serous Amount: Moderate Color: Red Odor: None Periwound Skin Appearance: normal Wound edges: approximated Pain (associated with wound): none at time of assessment How does patient state this happened? pt unable to state how this happened Wound Number: 2 Location of the wound: chin Type of wound: MASD ( due to execessive secretions from mouth and nose ) Thickness: Full Size: 0.5cm x 0.5cm x 0.1cm Tunneling: none Undermining: none Sinus Tract: none Presence of Exudate: Serous Amount: Light Color: Red Odor: None Periwound Skin Appearance: Edema Wound edges: approximated Pain (associated with wound): none at time of assessment How does patient state this happened? pt unable to state how this happened Wound Number: 3 Location of the wound: right cheek Type of wound: emergency medical technician related injury Thickness: Partial Size: 0.5cm x 1.0cm x 0.1cm Tunneling: none Undermining: none Sinus Tract: none Presence of Exudate: Serous Amount: Moderate Color: [place] Odor: None Periwound Skin Appearance: Edema Wound edges: approximated Pain (associated with wound): none at time of assessment How does patient state this happened? pt unable to state how this happened Wound Number: 4 Location of the wound: left side of nose Thickness: Partial Size: 0.7cm x 0.2cm x 0.1cm Tunneling: none Undermining: none Sinus Tract: none Presence of Exudate: Serous Amount: Moderate Color: Red Odor: None Periwound Skin Appearance: Edema Wound edges: approximated Pain (associated with wound): none at time of assessment How does patient state this happened? pt unable to state how this happeend Wound Number: 5 Location of the wound: left plantar aspect of foot Thickness: Full Size: 2.1cm x 2.5cm x <0.1cm Tunneling: none Undermining: none Sinus Tract: none Presence of Exudate: none Amount: None Color: Purple Odor: None Periwound Skin Appearance: Normal Wound edges: intact blood filled blister Pain (associated with wound): none at time of assessment How does patient state this happened? pt unable to state how this happend Wound Number: 6 Location of the wound: right side of scrotum Type of wound: stage 2 Thickness: Partial Size: 1.0cm x 1.0cm x 0.1cm Tunneling: none Undermining: none Sinus Tract: none Presence of Exudate: Serous Amount: Light Color: Red Odor: None Periwound Skin Appearance: Normal Wound edges: approximated Pain (associated with wound): none at time of assessment How does patient state this happened? pt unable to state how this happened Wound Number: 7 Location of the wound: right hip Type of wound: DTI Size: 4.5cm x 4.8cm x <0.1cm Tunneling: none Undermining: none Sinus Tract: none Presence of Exudate: none Amount: None Color: Purple, dark red Odor: None Periwound Skin Appearance: Normal Wound edges: intact blood filled blister Pain (associated with wound): none at time of assessment How does patient state this happened? pt unable to state how this happened Wound Number: 8 Location of the wound: left buttocks Type of wound: emergency medical technician related pressure injury (stage 2) Thickness: Partial Size: 0.5cm x 0.8cm x <0.1cm Tunneling: none Undermining: none Sinus Tract: none Presence of Exudate: none Amount: None Color: [place] Odor: None Periwound Skin Appearance: Normal Wound edges: intact serum filled blister Pain (associated with wound): none at time of assessment How does patient state this happened? pt unable to state how this happened Surface the patient is resting on: XPRT SKIN PREVENTION RECOMMENDATION: 1. Pressure redistribution support surface as appropriate 2. Elevate heels 3. Remove boots/TEDS every shift and reapply 4. Head of bed 30 degrees as tolerated 5. Assess nutrition and hydration 6. Manage moisture 7. Avoid the use of containment devices while in bed 8. Use absorptive products on surfaces limit layers of linens on bed 9. Turn and reposition every 1-2 hours in bed and every 1 hour in chair as tolerated 10. Weight shifts every 15 minutes while up in chair 11. Offloading with pillows or device to keep heels elevated off bed 12. Monitor skin at least every shift 13. Inspect under medical devices twice a day WOUND TREATMENT RECOMMENDATIONS: Continue Stage 2 guidelines: Cleanse left buttocks with nss and apply sureprep to wound allow time to dry then cover with optifoam gentle every 2 days and prn for soiling. Continue DTI guidelines: Cleanse right hip with nss and apply surepre to wound allow time to dry then cover with optifoam gentle every 2 days and prn for soiling. Continue Cleanse right scrotum with soap and water and apply calazime every shift and prn for soiling. Continue Heel raiser pro boots to bilateral feet while in bed. Continue Full thickness guidelines: Apply sureprep to left plantar aspect of foot allow time to dry then apply optifoam gentle daily and prn for soiling Continue Partial thickness guidelines: Cleanse right side of face, left eyebrow, left side of nose and chin with nss and apply maxorb and cover with optifoam gentle daily and prn for soiling. Continue Heel raiser pro boots to bilateral feet while in bed.
[2019-06-13 09:21] LABS: ABG BASE EXCESS 0.4 mmol/L (-2.0-2.0); ARTERIAL BLOOD GAS PH 7.458 (7.35-7.45)
--- NOTE | 2019-06-13 11:24 | NUR ---
DR BLANCO [place].ORDERS RECIEVED.
[2019-06-13 18:02] LABS: BUN 20 mg/dl (7-24); CHLORIDE 106 mmol/L (98-107); CREATININE 0.74 mg/dL (0.70-1.30); POTASSIUM 4.2 mmol/L (3.5-5.1); SODIUM 137 mmol/L (136-145)
--- NOTE | 2019-06-13 20:00 | NUR ---
DR TANNER NOTIFIED OF SEIZURE LIKE ACTIVITY AND SEVERE CHANGE IN VS.
--- NOTE | 2019-06-13 20:00 | NUR ---
VENT CHECK WAS DONE, ETT WAS AT 22 AT THE LIP. ADVANCED TO 26 PER PREVIOUS. ORALLY SUCTIONED. ET SUCTIONED. PT WAS COMFORTABLE WHEN I LEF TTHE ROOM CALLED BACK INTO ROOM 10 MINUTES LATER. PT HAVING SEIZURE LIKE ACTIVITY. ETT, BEATTY AND TUBING FILLED WITH WHITE FROTHY SECRETIONS. SOME PINK THICK SECRETIONS. FLIPPED INTO AC ON VENT. SATS CAME UP. VENT TUBING AND HME AND BEATTY CHANGED. BREATHING RETURNED TO NORMAL. RN IN ROOM, PLACED BACK ON CPAP AFTER ATIVAN WAS GIVEN AND CONTINUES TO TOLERATE
--- NOTE | 2019-06-13 20:05 | NUR ---
MEDICATED WITH IV ATIVAN ORDERED FOR AGITATION.
--- NOTE | 2019-06-13 20:45 | NUR ---
MEDICATED WITH ORAL TYLENOL VIA OG FOR RECTAL FEVER OF 101.6.
--- NOTE | 2019-06-13 21:00 | NUR ---
PT REFUSED SOCKS/HEEL PROTECTORS.
--- NOTE | 2019-06-13 23:00 | NUR ---
MEDICATION EFFECTIVE FOR SEIZURE ACTIVITY.
[2019-06-14] VITALS (19 sets, daily range): BP systolic 111–150; BP diastolic 57–97
--- NOTE | 2019-06-14 | NUR ---
MEDICATED WITH IV ATIVAN FOR AGITATION AND PULLING EQUIPMENT APART. ART LINE REMOVED D/T EXCESSIVE BLEEDING AND LACK OF FUNCTIONING AFTER PT WAS MOVING EXCESSIVELY.
--- NOTE | 2019-06-14 02:00 | NUR ---
24 HR chart check completed.
--- NOTE | 2019-06-14 04:00 | NUR ---
MEDICATION EFFECTIVE FOR TEMP, WHICH IS NOW 99.5, AND FOR AGITATION.
[2019-06-14 05:45] LABS: ABG BASE EXCESS 2.1 mmol/L (-2.0-2.0); ARTERIAL BLOOD GAS PH 7.448 (7.35-7.45)
--- NOTE | 2019-06-14 07:54 | NUR ---
Eyes open spontaneously, obeys verbal command. Lab draw LH. IV start to LH. Repositioned. VT w/i range. Vanc up to infuse. Oral care per RT. ETT secure. Shackles present to BLE and rt. wrist. No impairemwnt noted. Diaphoretic and skin care given.
[2019-06-14 08:19] LABS: ABG BASE EXCESS 2.4 mmol/L (-2.0-2.0); ARTERIAL BLOOD GAS PH 7.447 (7.35-7.45)
--- NOTE | 2019-06-14 15:09 | NUR ---
PT EXTUBATED TO 4LNC. NO STRIDOR HEARD POST EXTUBATION. SATS MAINTAINING 93-95%. PT IS AUDIBLE. NO RES DISTRESS OR SOB NOTED. WILL CONTINUE TO MONITOR.
--- NOTE | 2019-06-14 15:28 | NUR ---
Dr. Sulaiman bolaños evaulate. Order for extubation recieved and preformed per RT. pt. tolerated well. Dressing change to rt. hip / site is blackened . w/o drainage.
[2019-06-14 17:44] LABS: ABG BASE EXCESS 3.2 mmol/L (-2.0-2.0); ARTERIAL BLOOD GAS PH 7.457 (7.35-7.45)
--- NOTE | 2019-06-14 19:58 | NUR ---
MEDICATED WITH PO TYLENOL VIA R NARE NG ORDERED FOR C/O BILAT HIP PAIN R/T ARTHRITIS PER PT RATED 5/10.
[2019-06-15] VITALS: BP 122/76
[2019-06-15 04:00] VITALS: BP 124/76
[2019-06-15 08:00] VITALS: BP 129/83
[2019-06-15 09:27] LABS: ABG BASE EXCESS 3.2 mmol/L (-2.0-2.0); ARTERIAL BLOOD GAS PH 7.473 (7.35-7.45)
[2019-06-15 12:00] VITALS: BP 136/85
--- NOTE | 2019-06-15 12:30 | NUR ---
Dr. Hilario in to evaulate orders recieved. Diaz clamped for bladder training.
[2019-06-15 12:59] LABS: BASO % 0.4 % (0.0-1.0); EOS # 0.7 10*3/uL (0.0-0.4); EOS % 6.4 % (1.0-4.0); HEMATOCRIT 34.9 % (42.0-52.0); LYMPH # 1.6 10*3/uL (1.3-4.4); LYMPH % 14.8 % (27.0-41.0); MEAN CELL VOLUME 94.8 fl (80.0-94.0); MEAN CORPUSCULAR HGB 30.4 pg (27.0-31.0); MEAN CORPUSCULAR HGB CONC 32.1 g/dl (33.0-37.0); MEAN PLATELET VOLUME 10.9 fl (9.6-12.3); MONO # 1.3 10*3/uL (0.1-1.0); MONO % 12.5 % (3.0-9.0); NEUT # 6.8 10*3/uL (2.3-7.9); NEUT % 63.2 % (47.0-73.0); NUCLEATED RED BLOOD CELL 0.1 10*3/uL (0.0-0.0); NUCLEATED RED BLOOD CELL 0.6 % (0.0-0.0); PLATELET COUNT AUTOMATED 283 10*3/uL (130-400); RED BLOOD COUNT 3.68 10*6/uL (4.50-5.90); RED CELL DISTRI WIDTH 16.3 % (0-14.5); WHITE BLOOD COUNT 10.8 10*3/uL (4.8-10.8)
[2019-06-15 13:22] LABS: ALBUMIN 2.3 gm/dl (3.1-4.5); ALKALINE PHOSPHATASE 74 U/L (45-117); BUN 17 mg/dl (7-24); CHLORIDE 104 mmol/L (98-107); CREATININE 0.84 mg/dL (0.70-1.30); SGOT/AST 28 IU/L (3-35); SGPT/ALT 42 U/L (12-78); SODIUM 137 mmol/L (136-145)
--- NOTE | 2019-06-15 15:00 | NUR ---
Pt. restless. States he has to pee. diehl unclamped. Bladder emptied and re-clamped.
[2019-06-15 16:00] VITALS: BP 125/77
[2019-06-15 20:00] VITALS: BP 141/99; BP 153/90
--- NOTE | 2019-06-15 20:00 | NUR ---
Patient states that his legs ache, did some exercises with him and proped them up with pillows to get off his heels. Patient appropriate, no hallucinations at this time. Patient asking what type of medications he was getting. Explained the antibiotics he was getting and the bp med. Patient drinking with no problems. In view of staff.
[2019-06-16] VITALS: BP 134/86
--- NOTE | 2019-06-16 01:06 | NUR ---
24 HR chart check completed.
--- NOTE | 2019-06-16 02:00 | NUR ---
Patient very restless, moving side to side. Went in and patient had a bowel movement and had pulled out his ng. cleaned patient, and explained why he had the ng in, and patient was not comprehending what i was saying. Patient not wanting another ng tube. Monitoring on camera.
[2019-06-16 04:00] VITALS: BP 127/84
[2019-06-16 06:15] LABS: HEMATOCRIT 37.4 % (42.0-52.0); MEAN CELL VOLUME 95.2 fl (80.0-94.0); MEAN CORPUSCULAR HGB 30.5 pg (27.0-31.0); MEAN CORPUSCULAR HGB CONC 32.1 g/dl (33.0-37.0); MEAN PLATELET VOLUME 10.9 fl (9.6-12.3); NUCLEATED RED BLOOD CELL 0.1 10*3/uL (0.0-0.0); NUCLEATED RED BLOOD CELL 0.4 % (0.0-0.0); PLATELET COUNT AUTOMATED 281 10*3/uL (130-400); RED BLOOD COUNT 3.93 10*6/uL (4.50-5.90); RED CELL DISTRI WIDTH 16.6 % (0-14.5)
[2019-06-16 06:43] LABS: PLATELET SUFFICIENCY NORMAL (NORMAL); POLYCHROMASIA SLIGHT; TOTAL CELLS COUNTED 100 #CELLS
[2019-06-16 06:45] LABS: ALBUMIN 2.4 gm/dl (3.1-4.5); ALKALINE PHOSPHATASE 71 U/L (45-117); BUN 13 mg/dl (7-24); CHLORIDE 104 mmol/L (98-107); CREATININE 0.83 mg/dL (0.70-1.30); PREALBUMIN 18 mg/dl (20-40); SGOT/AST 26 IU/L (3-35); SGPT/ALT 43 U/L (12-78); SODIUM 137 mmol/L (136-145); TOTAL PROTEIN 7.1 gm/dL (6.4-8.2)
--- NOTE | 2019-06-16 07:30 | NUR ---
AWAKE AND ALERT, CONVERSES, CONVERSATION IS ALITTLE SLOW ARMS VERY WEAK, ENC TO MOVE ARMS FEEDING TUBE WAS PULLED UT LAST NIGHT, PT HAS BEEN TAKING SIPS OF WATER WITHOUT ANY COUGHING OR CHOKING, REMAINS HANDCUFFED X 1 AND SHACKLED REPOSITIONED, PERIPHERAL HEP LOCK IS INTACT
[2019-06-16 08:00] VITALS: BP 106/82
[2019-06-16 12:00] VITALS: BP 112/71
[2019-06-16 16:00] VITALS: BP 120/65
--- NOTE | 2019-06-16 16:54 | NUR ---
INC STOOL, LINENS CHANGED, PT REMAINS ALERT AND ORIENTED PT IS WILLINGLY EXERCISING ALL EXTREM DRINKING WATER INDEPENDENTLY
--- NOTE | 2019-06-16 18:35 | NUR ---
NOTED TO BE IN BIGEMINY, WHICH IS NOT NEW FOR THIS PT
--- NOTE | 2019-06-16 19:22 | NUR ---
24 HR chart check completed.
[2019-06-16 20:00] VITALS: BP 118/79
--- NOTE | 2019-06-16 22:00 | NUR ---
Patient incont of urine and bm multiple times. Educated patient on using the urinal. Patient eating very well and drinking with no problems. Patient appropriate at this time. Patient in view of camera.
[2019-06-17] VITALS: BP 133/67
[2019-06-17 04:00] VITALS: BP 116/70
[2019-06-17 08:00] VITALS: BP 116/70; BP 132/96
--- NOTE | 2019-06-17 10:19 | NUR ---
Spoke to Sydnie, coordinator at the residential, regarding patient's who may need therapy at a facility prior to returning to the residential. She states they have contracted therapy who are currently on hold due to the COVID but will resume at some point in time. She states the inmates need to be evaluated by PT while here in the hospital and then can resume therapy when they return to the facility. Hospitalist nurse director notified.
--- NOTE | 2019-06-17 11:50 | NUR ---
Spoke to Dr. Le regarding [facility] requesting patient have PT here and then have OP PT [facility] the [facility]. Spoke to Director of Rehab, Mikhail, who is going to coordinate with the PT that goes to the [facility] to come to the 5th floor.
[2019-06-17 12:00] VITALS: BP 113/80
[2019-06-17 13:48] LABS: HEMATOCRIT 36.1 % (42.0-52.0); MEAN CELL VOLUME 95.5 fl (80.0-94.0); MEAN CORPUSCULAR HGB 29.9 pg (27.0-31.0); MEAN CORPUSCULAR HGB CONC 31.3 g/dl (33.0-37.0); MEAN PLATELET VOLUME 11.2 fl (9.6-12.3); NUCLEATED RED BLOOD CELL 0.1 10*3/uL (0.0-0.0); NUCLEATED RED BLOOD CELL 0.4 % (0.0-0.0); PLATELET COUNT AUTOMATED 294 10*3/uL (130-400); RED BLOOD COUNT 3.78 10*6/uL (4.50-5.90); RED CELL DISTRI WIDTH 16.7 % (0-14.5); WHITE BLOOD COUNT 11.9 10*3/uL (4.8-10.8)
[2019-06-17 13:59] LABS: BUN 14 mg/dl (7-24); CHLORIDE 104 mmol/L (98-107); CREATININE 0.85 mg/dL (0.70-1.30); POTASSIUM 4.1 mmol/L (3.5-5.1); SODIUM 135 mmol/L (136-145)
[2019-06-17 14:08] LABS: ATYPICAL LYMPHS 1 % (0-0); PLATELET SUFFICIENCY NORMAL (NORMAL); TOTAL CELLS COUNTED 100 #CELLS
[2019-06-17 16:00] VITALS: BP 139/95
--- NOTE | 2019-06-17 17:40 | NUR ---
PT C/O KNEE PAIN 5/10 AT THIS TIME AND MEDICATED WITH PO TYLENOL PER ORDER. WILL MONITOR FOR EFFECTIVENESS.
[2019-06-17 20:00] VITALS: BP 131/76
--- NOTE | 2019-06-17 20:00 | NUR ---
IN TO ASSESS PATIENT. PATIENT ATTEMPTED TO USE URINAL, BUT MISSED AND WAS INCONTINENT FOR AN EXTRA LARGE AMOUNT OF URINE IN THE BED. BED CHANGED AND PATIENT CLEANED UP. 2L NC INTACT. PATIENT SATTING MID 90'S. NO DISTRESS. VITALS WITHIN NORMAL LIMITS. ENCOURAGED PATIENT TO CONTINUE HIS EXERCISES. CALL LIGHT WITHIN REACH, WILL MONITOR
--- NOTE | 2019-06-17 21:41 | NUR ---
PRN TYLENOL GIVEN FOR PT COMPLAINTS OF PAIN IN THE FEET. HEEL PROTECTORS ALSO APPLIED. PATIENT STATED THE HEEL PROTECTORS FEEL ALOT BETTER. CALL LIGHT WITHIN REACH, VANCO INFUSING. VITAL SIGNS WITHIN LIMITS
--- NOTE | 2019-06-17 22:45 | NUR ---
24 HR chart check completed.
[2019-06-18] VITALS: BP 125/85
--- NOTE | 2019-06-18 02:04 | NUR ---
PATIENTS DRESSING CHANGED TO THE RIGHT HIP. PATIENT STATED THAT IT WAS ITCHING. HEEL PROTECTORS REMOVED WELL PER PT REQUEST. PT ALSO GIVEN TYLENOL FOR PAIN IN THE KNEE. CALL LIGHT WITHIN REACH, WILL MONITOR
--- NOTE | 2019-06-18 03:21 | NUR ---
PATIENT SLEEPING, BREATHING IS EASY AND REGULAR ON 2L NC. NO DISTRESS NOTED. CALL LIGHT WITHIN REACH, WILL MONITOR
[2019-06-18 04:00] VITALS: BP 133/82
--- NOTE | 2019-06-18 05:22 | NUR ---
LEFT AC IV LEAKING AND BURNING. NEW IV STARTED IN RIGHT AC #22 GAUGE. ZOSYN INFUSING WITHOUT PROBLEM. LABS DRAWN AND SENT TO LAB. 2L NC REMAINS INTACT. CALL LIGHT WITHIN REACH, WILL MONITOR
[2019-06-18 05:57] LABS: ALBUMIN 2.5 gm/dl (3.1-4.5); ALKALINE PHOSPHATASE 67 U/L (45-117); BUN 11 mg/dl (7-24); CHLORIDE 102 mmol/L (98-107); CREATININE 0.89 mg/dL (0.70-1.30); POTASSIUM 4.2 mmol/L (3.5-5.1); SGOT/AST 23 IU/L (3-35); SGPT/ALT 41 U/L (12-78); SODIUM 137 mmol/L (136-145); TOTAL PROTEIN 7.2 gm/dL (6.4-8.2)
[2019-06-18 06:07] LABS: BASO # 0.1 10*3/uL (0.0-0.1); BASO % 0.7 % (0.0-1.0); EOS # 0.9 10*3/uL (0.0-0.4); EOS % 9.6 % (1.0-4.0); HEMATOCRIT 36.1 % (42.0-52.0); LYMPH # 2.1 10*3/uL (1.3-4.4); LYMPH % 21.1 % (27.0-41.0); MEAN CORPUSCULAR HGB 30.3 pg (27.0-31.0); MEAN CORPUSCULAR HGB CONC 31.6 g/dl (33.0-37.0); MEAN PLATELET VOLUME 11.4 fl (9.6-12.3); MONO # 1.1 10*3/uL (0.1-1.0); MONO % 11.7 % (3.0-9.0); NEUT # 5.2 10*3/uL (2.3-7.9); NEUT % 53.9 % (47.0-73.0); NUCLEATED RED BLOOD CELL 0.2 % (0.0-0.0); PLATELET COUNT AUTOMATED 298 10*3/uL (130-400); RED BLOOD COUNT 3.76 10*6/uL (4.50-5.90); RED CELL DISTRI WIDTH 16.6 % (0-14.5); WHITE BLOOD COUNT 9.7 10*3/uL (4.8-10.8)
--- NOTE | 2019-06-18 06:15 | NUR ---
ATTEMPTED TO WEIGHT PATIENT. WEIGHT OBTAINED 276.3 LAST WEIGHT YESTERDAY [phone]. WILL PASS ON TO DAYTURN TO ATTEMPT TO REWEIGHT
--- NOTE | 2019-06-18 06:30 | NUR ---
PATIENTS BLOOD SUGAR BASED OFF LAB WORK BLOOD SUGAR 100.
[2019-06-18 08:00] VITALS: BP 134/72
--- NOTE | 2019-06-18 11:22 | NUR ---
Spoke to Jesica and Mikhail from PT. Jesica is going to do the PT evals as soon as she is fit tested. Hospitalist nurse director notified for PT orders and Dr. Le notified of plan.
[2019-06-18 12:00] VITALS: BP 110/76
--- NOTE | 2019-06-18 14:17 | NUR ---
PHYSICAL THERAPY Physical Therapy evaluation completed on 5E with full evaluation to follow. Moderate complexity PT evaluation per chart review and evaluation, [address]. Recommend physical therapy per plan of care and continued Skilled PT services upon discharge. Thank you for this referral. Jesica Smith,PT,DPT
[2019-06-18 16:00] VITALS: BP 127/90
[2019-06-18 20:00] VITALS: BP 116/77
--- NOTE | 2019-06-18 23:01 | NUR ---
PATIENT MEDICATED WITH TYLENOL FOR C/O HEADACHE. WILL MONITOR
[2019-06-19] VITALS: BP 106/45
[2019-06-19 06:23] LABS: HEMATOCRIT 37.9 % (42.0-52.0); MEAN CORPUSCULAR HGB 30.3 pg (27.0-31.0); MEAN CORPUSCULAR HGB CONC 31.9 g/dl (33.0-37.0); MEAN PLATELET VOLUME 10.7 fl (9.6-12.3); PLATELET COUNT AUTOMATED 310 10*3/uL (130-400); RED BLOOD COUNT 3.99 10*6/uL (4.50-5.90); RED CELL DISTRI WIDTH 16.5 % (0-14.5); WHITE BLOOD COUNT 9.5 10*3/uL (4.8-10.8)
[2019-06-19 06:39] LABS: ALBUMIN 2.5 gm/dl (3.1-4.5); ALKALINE PHOSPHATASE 69 U/L (45-117); BUN 10 mg/dl (7-24); CHLORIDE 102 mmol/L (98-107); CREATININE 0.84 mg/dL (0.70-1.30); SGOT/AST 21 IU/L (3-35); SGPT/ALT 42 U/L (12-78); SODIUM 137 mmol/L (136-145); TOTAL PROTEIN 7.1 gm/dL (6.4-8.2)
[2019-06-19 07:08] LABS: ATYPICAL LYMPHS 1 % (0-0); PLATELET SUFFICIENCY NORMAL (NORMAL); POLYCHROMASIA SLIGHT; TOTAL CELLS COUNTED 100 #CELLS
[2019-06-19 08:00] VITALS: BP 127/77
--- NOTE | 2019-06-19 08:33 | NUR ---
Occupational therapy orders received on 06/18/2019. Per discussion with Jesica from case management, patient does not need an OT evaluation at this time. Will hold on occupational therapy until further notice from case management or hospitalist. Thank you. Alison Gordon, OTR/L
--- NOTE | 2019-06-19 08:54 | NUR ---
Faxed PT eval to Sydnie, coordinator at [facility]
--- NOTE | 2019-06-19 09:40 | NUR ---
PATIENT UP IN CHAIR. PATIENT DID WELL AND WALKED TO END OF ROOM AND BACK TO CHAIR.
--- NOTE | 2019-06-19 10:36 | NUR ---
Spoke to Sydnie, medical coordinator at the [facility], regarding possibility of patient returning tomorrow to the [facility]. Briefly went over patient's progress during stay, pulse ox, and PT eval. Explained he is ambulating with a walker but will need skilled PT services upon return to the [facility]. She states she is going to have to pass some things by some other people and think outside the box to come up with alternative plans. She states she has to make some phone calls and will return CM call. Dr. Atkinson notified.
--- NOTE | 2019-06-19 10:46 | NUR ---
Received call from Dr. Olvera from [facility] regarding discharge planning. She would like the patient to stay here at the hospital until they are appropriate to return to the correction. She would like them to continue to get therapy services here at the hospital. If we are unable to keep them here they would have to look at the possibility of [facility]. Dr. Atkisnon, CNO, Body Shop Technician, and Director of Rehab notified. Awaiting final decision.
--- NOTE | 2019-06-19 11:51 | NUR ---
Spoke to Director of Rehab regarding inpatient physical therapy continuing to work with patient and he is agreeable to have inpatient therapy continue. Spoke to business office, CNO, Gauge And Weigh Machine Adjuster, Director Inpatient Services, and Dr. Atkinson. Dr. Atkinson stated it was ok for therapy to work with the patients twice daily. Therapy notified.
[2019-06-19 12:00] VITALS: BP 122/79
--- NOTE | 2019-06-19 14:36 | NUR ---
PHYSICAL THERAPY Physical therapy treatment complete, Total treatment time: 25 minutes. Patient sitting in recliner chair with legs propped up upon entry to room. Patient agreeable to skilled PT services, but states he "already walked from the chair to the wall earlier." (approximately 10') Educated patient on importance of getting up and moving around multiple times a day to increase endurance and mobility to return to PLOF. Patient c/o of bilateral knee pain, R>L, not rated. Patient performed sit to stand, 3 x5 each, Total of 15x standing for 10 seconds each time. Patient fatigues quickly, requiring ~30 seconds rest in between each standing session. Patient unable to stand without use of Bilateral UE for assist. Initially ModA x1. After verbal and tactile cueing for appropriate sequence, patient able to stand with Faustino x1 with BUE assist. Patient on 2L O2 via NC with no complaint of SOB. Patient remained sitting in recliner chair at end of session. Legs elevated for comfort. Call brooks within reach. Thank you. Jesica Smith,PT,DPT
[2019-06-19 16:00] VITALS: BP 127/72
[2019-06-19 20:00] VITALS: BP 127/85
[2019-06-20] VITALS: BP 121/72
--- NOTE | 2019-06-20 00:59 | NUR ---
TYELNOL ADMINISTERED FOR PT C/O BILATERAL FOOT PAIN.
--- NOTE | 2019-06-20 05:46 | NUR ---
UNABLE TO GET PT WEIGHT THIS MORNING. PT REFUSING TO GET BACK INTO BED, STATES HE WANTS TO "STAY IN HIS RECLINER".
--- NOTE | 2019-06-20 06:17 | NUR ---
ARIELLESTEPHANIECHEVY [id number] Please refer to the physician's history and physical for past medical history, comorbid conditions, and allergies. 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 pt unable to state how this happened Wound Number: 2 Location of the wound: chin Type of wound: MASD ( due to execessive secretions from mouth and nose ) Thickness: Full Size: 0.5cm x 0.5cm x 0.1cm Tunneling: none Undermining: none Sinus Tract: none Presence of Exudate: none Amount: none Color: Red Odor: None Periwound Skin Appearance: Normal Wound edges: approximated Pain (associated with wound): none at time of assessment How does patient state this happened? pt unable to state how this happened Wound Number:3 Location of the wound: right cheek Type of wound: medical malpractice paralegal related injury Thickness: Partial Size: 0.1cm x 0.2cm x 0.1cm Tunneling: none Undermining: none Sinus Tract: none Presence of Exudate: none Amount: none Color: [place] Odor: None Periwound Skin Appearance: Normal Wound edges: approximated Pain (associated with wound): none at time of assessment How does patient state this happened? pt unable to state how this happened Wound Number: 4 Location of the wound: left side of nose Thickness: Partial Size: 0.1cm x 0.3cm x 0.1cm Tunneling: none Undermining: none Sinus Tract: none Presence of Exudate: none Amount: none Color: Red Odor: None Periwound Skin Appearance: Edema Wound edges: approximated Pain (associated with wound): none at time of assessment How does patient state this happened? pt unable to state how this happeend Wound Number: 5 Location of the wound: left plantar aspect of foot Thickness: Full Size: 2.1cm x 2.5cm x <0.1cm Tunneling: none Undermining: none Sinus Tract: none Presence of Exudate: none Amount: None Color: Black Odor: None Periwound Skin Appearance: Normal Wound edges: intact blood filled blister Pain (associated with wound): none at time of assessment How does patient state this happened? pt unable to state how this happend Wound Number: 6 Location of the wound: right side of scrotum. Area is pink and blanchable at time of assessment. No open areas noted at time of assessment. No drainage noted at time of assessment. Wound Number: 7 Location of the wound: right hip. Area is pink and blanchable at time of assessment. No open areas noted at time of assessment. No drainage noted at time of assessment. Wound Number: 8 Location of the wound: left buttocks was unable to see at this time due to patient not wanting to get out of the chair for evaluation. Surface the patient is resting on: XPRT, gerichair SKIN PREVENTION RECOMMENDATION: 1. Pressure redistribution support surface as appropriate 2. Elevate heels 3. Remove boots/TEDS every shift and reapply 4. Head of bed 30 degrees as tolerated 5. Assess nutrition and hydration 6. Manage moisture 7. Avoid the use of containment devices while in bed 8. Use absorptive products on surfaces limit layers of linens on bed 9. Turn and reposition every 1-2 hours in bed and every 1 hour in chair as tolerated 10. Weight shifts every 15 minutes while up in chair 11. Offloading with pillows or device to keep heels elevated off bed 12. Monitor skin at least every shift 13. Inspect under medical devices twice a day WOUND TREATMENT RECOMMENDATIONS: Continue heel raiser pro boots to bilateral feet while in bed Wheelchair cushion when oob. Continue full thickness guidelines to left plantar foot. d/c partial thickness guidelines
--- NOTE | 2019-06-20 06:20 | NUR ---
PT TRANSFERRED TO [facility] ROOM 4004. AWAITING TO GIVE REPORT TO RECEIVING NURSE.
[2019-06-20 08:00] VITALS: BP 127/60
--- NOTE | 2019-06-20 08:00 | NUR ---
PT SLEEPING IN RECLINER CHAIR, AWAKENS EASILY. RESP-EASY AND REGULAR ON ROOM AIR. CALL LIGHT IN REACH. SEE SHIFT ASSESSMENT.
--- NOTE | 2019-06-20 09:00 | NUR ---
PT ASSISTED UP TO USE URINAL. STANDING WITH STANDBY ASSIST. CALL LIGHT IN REACH,.
--- NOTE | 2019-06-20 09:50 | NUR ---
PT TOLERATED ROUTINE MEDS WITH NO PROBLEM. EATING BREAKFAST. CALL LIGHT IN REACH. WILL MONITOR.
--- NOTE | 2019-06-20 10:07 | NUR ---
DR. UNGER ON THE FLOOR TO SEEE PT.
--- NOTE | 2019-06-20 10:43 | NUR ---
PHYSICAL THERAPY Physical therapy treatment session complete. Total treatment time: 29 minutes. Patient seated in recliner chair upon entry and agreeable to skilled PT services. Patient performed sit to stand CGA and gait trained 16'x5, (totaling 80' with rest breaks) taking a seat between each gait session. SpO2 89% on room air at start of PT session and ranged from 89% to 92% on room air throughout PT session. Patient performed side stepping gait in room, 10'x4 (40') and posterior walking 10'x2 (20') with CGA throughout. Patient returned to chair for seated rest break, and then gait trained to/from bathroom 20'x2, 40' total. Patient requesting to take shower this date, nursing notified. At end of session, patient performed x10 sit to stand from recliner chair with UE assist and SBA. SpO2 at 89% following x10 sit to stand. Patient comfortable, call brooks within reach at end of session. Thank you
--- NOTE | 2019-06-20 11:09 | NUR ---
DR. LOYOLA ON FLOOR TO SEE PT. OK TO DISCHARGE PER HIS STANDPOINT.
--- NOTE | 2019-06-20 11:30 | NUR ---
DR. SIMEON ON THE PIPRE TO SEE PT. BW AND CXR FOR SUNDAY .
--- NOTE | 2019-06-20 11:45 | NUR ---
PHYSICAL THERAPY IN ROOM WITH PT.
--- NOTE | 2019-06-20 12:47 | NUR ---
MEDICATED WITH MOTRIN PO FOR FEET AND TOE PAIN, RATES PAIN 7 ON PAIN SCALE 0-10. SEE EMAR. CALL LIGHT IN REACH.
--- NOTE | 2019-06-20 15:33 | NUR ---
PHYSICAL THERAPY Physical therapy treatement complete. Total treatment time: 27 minutes. Patient reclined in chair upon arrival and agreeable to skilled PT services. Patient transferred to standing with SBA throughout session. Patient gait trained within room 50'x1 with CGA and LOB x2. Able to self correct LOB with CGA. Patient stating, "I'm not going to fall, don't touch me, you make me lose my balance" when gait training. Continued CGA for safety. Patient returned to seated position in recliner chair for rest. SpO2 92% and above throughout session on room air. Patient donned tennis shoes to walk in room due to c/o pain in feet. Patient gait trained 100' x1 with CGA and LOB x1. Able to self correct LOB with CGA. Patient returned to seated position in chair. At end of session, patient set up for shower. Patient assisted to bathroom 10'x1 with CGA. Guard remained in room with patient whenever toileting/showering was complete, therefore independent with hygiene/grooming. Thank you. Jesica Smith,PT,DPT.
[2019-06-20 16:00] VITALS: BP 133/87
--- NOTE | 2019-06-20 20:00 | NUR ---
PATIENT RESTING COMFORTABLY IN CHAIR. DENIES ANY SHORTNESS OF BREATH AT THIS TIME, ROOM AIR P.O. 94%. COMPLAINING OF DRY COUGH AND PAIN IN BILATERAL FEET. PATIENT REPOSITIONED, AND SEAT CUSHION PLACED BENEATH HIM. DRESSINGS APPLIED TO LEFT SOLE OF FOOT AND RIGHT HIP. WILL CONTINUE TO MONITOR.
[2019-06-21] VITALS: BP 119/53
[2019-06-21 05:06] LABS: HEP B CORE AB, IGM Negative (Negative); HEPATITIS B SURFACE AG Negative (Negative); HEPATITIS C VIRUS ANTIBODY 0.4 s/co (0.0-0.9)
[2019-06-21 08:00] VITALS: BP 125/81
--- NOTE | 2019-06-21 08:10 | NUR ---
INITIAL NURSING ASSESSMENT COMPLETE.RESPS EASY ON RA. SPO2 94%.LUNGS DIM T/O.PT DENIES ANY NEEDS AT THIS TIME,. PT DOES COMPLAIN OF BLE FOOT PAIN AND STATES "MOTRIN DOESN'T HELP". TYLENOL OFFERED. TOLD PT WE WILL NOTIFY DR UNGER WHEN HE ROUNDS.
--- NOTE | 2019-06-21 10:05 | NUR ---
DR UNGER ROUNDED AND ORDERS RECIEVED.
--- NOTE | 2019-06-21 10:57 | NUR ---
PHYSICAL THERAPY Physical therapy treatment complete. Total treatment time: 26 minutes. Patient supine in bed at beginning of session and agreeable to skilled PT services. Patient performed bed mobility to sit EOB. Donned shoes in seated position. SpO2 92% on RA at start of session. Patient transferred to standing position from EOB with CGA. Patient gait trained 160' with multiple turns and no LOB. Patient returned to seated position in recliner chair for rest break. SpO2 89% directly following gait, but came up to 92% on RA within seconds. Patient rested for ~2 minutes and then gait trained 240' in room with multiple turns and no LOB. SOB noted following second session of gait, but no drop on O2 levels noted. Patient at 92% which was level at baseline. C/o Right foot pain/numbness/tingling with gait this date. At end of session, patient resting in recliner chair, comfortable, call brooks within reach. SpO2 92% on RA. Guard in room throughout treatment session. Patient requesting to take shower at 14:30, nursing aware of request. Plan to continue per POC to improve endurance and functional mobility. Thank you. Jesica Smith,PT,DPT.
--- NOTE | 2019-06-21 12:30 | NUR ---
PT UP AND CHAIN REMOVED. PT IN TO TAKE A SHOWER. NO ASSISTANCE REQUIRED. COMPLETE LINEN CHANGE COMPLETED AT THIS TIME. PT VOICES NO OTHER NEEDS. GUARD PRESENT. PT BACK TO CHAIR WITHOUT DIFFICULTY. CALL LIGHT IN REACH.
[2019-06-21 16:00] VITALS: BP 122/73
--- NOTE | 2019-06-21 16:08 | NUR ---
PT SITTING IN CHAIR AT BEDSIDE WATCHING TV. NO DISTRESS NOTED.VITALS OBTAINED. RESPS EASY ON RA. CALL LIGHT IN REACH.
[2019-06-21 22:02] LABS: TB1 Ag VALUE 0.06 IU/mL (.)
--- NOTE | 2019-06-22 01:24 | NUR ---
TYLENOL ADMINISTERED FOR PT C/O RIGHT FOOT PAIN. PT DESCRIBES THE PAIN "STABBING". WILL MONITOR.
[2019-06-22 08:00] VITALS: BP 133/86
--- NOTE | 2019-06-22 08:12 | NUR ---
INITIAL ASSESSMENT COMPLETED. VITALS OBTAINED.VOICES NO NEEDS AT THIS TIME.RESPS EASY ON RA,SPO2 94%. SITTING UP IN CHAIR AT BEDSIDE. CALL LIGHT IN REACH.
--- NOTE | 2019-06-22 10:00 | NUR ---
RHYSICAL THERAPIST IN TO SEE PT. PT PARTICIPATING IN THERAPY AND TOLERATING WELL. NO DIFFICULTY NOTED.DENIES SOB. PT ONLY COMPLAINS OF RIGHT FOOT PAIN.
--- NOTE | 2019-06-22 10:05 | NUR ---
PHYSICAL THERAPY Physical therapy treatment complete. Total treatment time: 32 minutes. Patient reclined in chair upon arrival and agreeable to skilled PT services. Nurse Piper in room to discuss Right foot pain. Patient describes pain as "stabbing." Nurse assisted patient to put shoes on bilateral feet, noting increased swelling at right foot. Nurse left room. Guard present throughout treatment this date. Patient SpO2 at 92% room air at start of treatment session. Patient transferred to standing position with SBA and gait trained within room. Patient gait trained 160' with SBA and multiple turns, mild LOB x1,which was self corrected with SBA. SpO2 at 92% on RA during seated rest break. Patient rested for ~2 minutes, transferred to standing position with SBA, and gait trained 200' with SBA and multiple turns, no LOB. Patient returned to seated position in chair. SpO2 89% on RA, and came up tp 90-92% within 30 seconds of rest. Patient rested ~2 minutes seated. Patient transferred from chair with SBA and gait trained 160' in room with SBA and multiple turns, no LOB. Patient returned to seated position in chair, SpO2 89% after gait, and returned to 92% at end of session. While gait training, patient stopped and initiated squat position x2, 1 repetition each time with no LOB. Patient sitting in recliner chair at end of session, comfortable, call brooks within reach. Patient planning to go to bathroom following PT session. Guard in room. Thank you. Jesica Smith,PT,DPT.
--- NOTE | 2019-06-22 11:05 | NUR ---
DR UNGER ROUNDED AND SEEN PT. ORDER RECIEVED. PER DR UNGER HE FEELS PT IS WELL ENOUGH TO RETURN TO [facility] TOMORROW AND WILL DISCUSS IT WITH DR FORTE.
[2019-06-22 12:00] VITALS: BP 118/56
[2019-06-22 20:00] VITALS: BP 126/68
--- NOTE | 2019-06-22 20:00 | NUR ---
PATIENT AWAKE AND ALERT SITTING IN CHAIR. PT SHACKLED TO BED AND ONE ARM CUFFED TO CHAIR. RESPIRATIONS EASY AND UNLAORED ON ROOM, PATIENT HAS NO COMPLAINTS OF SOB. PT COMPLAINS OF PAIN RATED 10/10 IN BALL OF RIGHT FOOT- MEDICATED WITH MOTRIN AND NEUROTIN AT THIS TIME. PATIENT ALSO COMPLAINING OF HEART BURN. NO OTHER COMPLAINTS AT THIS TIME. SEE VITALS AND SHIFT ASSESSMENT.
--- NOTE | 2019-06-22 20:44 | NUR ---
PATIENT C/O HEARTBURN, WANTS PRILOSEC INCREASED TO BID, STATES THAT IS HAT HE WAS TAKING PRIOR TO ADMISSION. CALLED AND SPOKE WITH SARMAD MOLINA TO INCREAE PRILOSEC TO BID.
--- NOTE | 2019-06-22 21:07 | NUR ---
PATIENT C/O ACID REFLUX, TUMS ADMINISTERED PRESCRIBED. WILL MONITOR FOR EFFECTIVENESS.
--- NOTE | 2019-06-22 21:34 | NUR ---
24 HR chart check completed.
--- NOTE | 2019-06-22 22:07 | NUR ---
PATIENT STATES THAT TUMS WERE EFFECTIVE.
--- NOTE | 2019-06-23 01:43 | NUR ---
PATIENT SITTING IN CHAIR RESTING AT THIS TIME. RESPIRATIONS EASY AND UNLABORED. CALL LIGHT IN REACH. WILL MONITOR.
--- NOTE | 2019-06-23 06:14 | NUR ---
PATIENT REFUSES TO GET OUT OF CHAIR TO GET WEIGHED AT THIS TIME. WILL GET UP AND GET WEIGHED WHEN PT WORKS WITH HIM.
[2019-06-23 06:16] LABS: HEMATOCRIT 36.9 % (42.0-52.0); MEAN CELL VOLUME 96.3 fl (80.0-94.0); MEAN CORPUSCULAR HGB 30.3 pg (27.0-31.0); MEAN CORPUSCULAR HGB CONC 31.4 g/dl (33.0-37.0); MEAN PLATELET VOLUME 10.2 fl (9.6-12.3); NUCLEATED RED BLOOD CELL 0.4 % (0.0-0.0); PLATELET COUNT AUTOMATED 319 10*3/uL (130-400); RED BLOOD COUNT 3.83 10*6/uL (4.50-5.90); RED CELL DISTRI WIDTH 16.6 % (0-14.5)
[2019-06-23 06:48] LABS: ALBUMIN 2.4 gm/dl (3.1-4.5); ALKALINE PHOSPHATASE 71 U/L (45-117); BUN 9 mg/dl (7-24); CHLORIDE 105 mmol/L (98-107); CREATININE 0.73 mg/dL (0.70-1.30); POTASSIUM 4.1 mmol/L (3.5-5.1); SGOT/AST 19 IU/L (3-35); SGPT/ALT 32 U/L (12-78); SODIUM 138 mmol/L (136-145); TOTAL PROTEIN 6.5 gm/dL (6.4-8.2)
[2019-06-23 06:52] LABS: BASOPHILS 1 % (0-1); PLATELET SUFFICIENCY NORMAL (NORMAL); POLYCHROMASIA SLIGHT; TOTAL CELLS COUNTED 100 #CELLS
[2019-06-23 06:53] LABS: TARGET CELLS FEW
[2019-06-23 08:00] VITALS: BP 134/88
--- NOTE | 2019-06-23 08:00 | NUR ---
Patient sitting up in chair. Respirations easy and regular on RA. No distress noted. Vital signs stable. Call light in reach. Will monitor SAL PATIÑO
[2019-06-23] MEDS ORDERED: GABAPENTIN100 M2 PO (08:23)
[2019-06-23] MEDS ORDERED: LOPRESSOR25 MG NG (08:23)
--- NOTE | 2019-06-23 08:30 | NUR ---
BED ZEROED AND WEIGHT OBTAINED, 297.9
--- NOTE | 2019-06-23 08:35 | NUR ---
PHYSICAL THERAPY Physical therapy treatment session complete. Total treatment time: 33 minutes. Patient reclined in chair upon arrival and agreeable to skilled PT services. Guard in room throughout treatment session. Patient SpO2 at 95% on RA at start of PT session. Assisted patient to deepali shoes prior to gait. Patient transferred to standing position with SBA and gait trained 200'x1 with SBA, multiple turns and no LOB. Patient returned to seated position and SpO2 at 98% on RA following gait session. Patient had seated rest break for ~3 minutes. Patient transferred to standing position and gait trained 200'x1 with SBA, multiple turns and mild LOB x1. Able to self correct. Patient reporting that the right foot pain is affecting his walking, but balance has been improving daily. Recommend continued LE exercises and ambulation at discharge to maintain endurance and functional mobility gains. Thank you. Jesica Smith,PT,DPT.
--- NOTE | 2019-06-23 10:00 | NUR ---
Discharge instructions reviewed with patient. Patient receptive and verbalizes understanding. Follow-up care arranged. Written instructions given to patient. SAL PATIÑO
--- NOTE | 2019-06-23 11:00 | NUR ---
PT DECLINED WOUND CARE DISCHARGE PHOTOS.
--- NOTE | 2019-06-23 11:29 | NUR ---
Discharge instructions reviewed with patient. Patient receptive and verbalizes understanding. Follow-up care arranged. Written instructions given to patient. SAL PATIÑO
--- NOTE | 2019-06-23 12:33 | NUR ---
Faxed discharge summary to [facility] as requested
== END 2019-06-23 12:17 | DRG 870 ==
LOC: 5E 13:31 → 4NE 06-20 06:33
PROVIDERS: Family Medicine; Internal Medicine; Internal Medicine Critical Care Medicine; Internal Medicine Nephrology; ADMIT Internal Medicine
PROC: B548ZZA Ultrasonography of Superior Vena Cava, Guidance (ICD-10-PCS; principal; 2019-05-29)
PROC: 02HV33Z Insertion of Infusion Device into Superior Vena Cava, Percutaneous Approach (ICD-10-PCS; principal; 2019-05-29)
PROC: 4A133B1 Monitoring of Arterial Pressure, Peripheral, Percutaneous Approach (ICD-10-PCS; principal; 2019-05-29)
PROC: 03HY32Z Insertion of Monitoring Device into Upper Artery, Percutaneous Approach (ICD-10-PCS; principal; 2019-05-29)
PROC: 4A133J1 Monitoring of Arterial Pulse, Peripheral, Percutaneous Approach (ICD-10-PCS; principal; 2019-05-29)
PROC: 5A1955Z Respiratory Ventilation, Greater than 96 Consecutive Hours (ICD-10-PCS; 2019-05-30)
PROC: 0BH17EZ Insertion of Endotracheal Airway into Trachea, Via Natural or Artificial Opening (ICD-10-PCS; 2019-05-30)
PROC: 0BH17EZ Insertion of Endotracheal Airway into Trachea, Via Natural or Artificial Opening (ICD-10-PCS; 2019-06-03)
PROC: 05HY33Z Insertion of Infusion Device into Upper Vein, Percutaneous Approach (ICD-10-PCS; 2019-06-07)
PROC: 5A09457 Assistance with Respiratory Ventilation, 24-96 Consecutive Hours, Continuous Positive Airway Pressure (ICD-10-PCS; 2019-06-13)
DX: A41.1 Sepsis due to other specified staphylococcus (principal); U07.1 COVID-19; J96.01 Acute respiratory failure with hypoxia; N17.0 Acute kidney failure with tubular necrosis; E43 Unspecified severe protein-calorie malnutrition; J12.89 Other viral pneumonia; R65.21 Severe sepsis with septic shock; G93.41 Metabolic encephalopathy; I21.A1 Myocardial infarction type 2; J96.02 Acute respiratory failure with hypercapnia; E87.1 Hypo-osmolality and hyponatremia; D68.59 Other primary thrombophilia; E87.0 Hyperosmolality and hypernatremia; T85.628A Displacement of other specified internal prosthetic devices, implants and grafts, initial encounter; E87.4 Mixed disorder of acid-base balance; Y84.8 Other medical procedures as the cause of abnormal reaction of the patient, or of later complication, without mention of misadventure at the time of the procedure; K59.00 Constipation, unspecified; D64.9 Anemia, unspecified; Y92.238 Other place in hospital as the place of occurrence of the external cause; A49.9 Bacterial infection, unspecified; E78.1 Pure hyperglyceridemia; E78.5 Hyperlipidemia, unspecified; R56.9 Unspecified convulsions; E03.9 Hypothyroidism, unspecified; K21.9 Gastro-esophageal reflux disease without esophagitis; E66.01 Morbid (severe) obesity due to excess calories; F41.1 Generalized anxiety disorder; E87.8 Other disorders of electrolyte and fluid balance, not elsewhere classified; E11.40 Type 2 diabetes mellitus with diabetic neuropathy, unspecified; I12.9 Hypertensive chronic kidney disease with stage 1 through stage 4 chronic kidney disease, or unspecified chronic kidney disease; N18.9 Chronic kidney disease, unspecified; E11.22 Type 2 diabetes mellitus with diabetic chronic kidney disease; E83.41 Hypermagnesemia; E87.5 Hyperkalemia; E11.65 Type 2 diabetes mellitus with hyperglycemia; Z88.8 Allergy status to other drugs, medicaments and biological substances